=== PATIENT | male | born 1980 | race Caucasian/White ===

== ENCOUNTER 2023-06-13 13:09 | Outpatient (OUT) | payer OTHER, SELFPAY ==
--- NOTE | 2023-06-13 | XR_ITS ---
[facility] [id number] Patient Name: MADISON EVANGELISTA MRN: [id number] date: 1980 Sex: M Assigned Patient Location: [facility] Current Patient Location: Accession/Order Number: [id number] Exam Date: 06/13/2023 13:14 Report Date: 06/14/2023 07:47 At the request of: DRABY PETERSEN Procedure: XR foot RT min 3V PROCEDURE: XR foot RT min 3V HISTORY: RIGHT FOOT PAIN COMPARISON: XR foot right 06/13/2023 FINDINGS: BONES:Prior mechanical fusion of first metatarsophalangeal joint with fracture of the dorsal plate. Osteotomy and screw repair of heads of second and third metatarsals. Partial resection of heads of second and third proximal phalanges. SOFT TISSUES:No visible soft tissue swelling. EFFUSION:None visible. OTHER: Negative. XR/XR foot RT min 3V IMPRESSION: 1. Stable surgical changes and stable fracture of first metatarsal hardware. Electronically authenticated by: PRANAV MORTENSEN Date: 06/14/2023 07:47
== END 2023-06-13 13:10 | disposition home or self-care (01) ==
LOC: RAD 13:10
PROVIDERS: PCP Family Medicine; Visit Provider Podiatrist Foot & Ankle Surgery
DX: M96.0 Pseudarthrosis after fusion or arthrodesis (principal)
CPT/HCPCS: 73630

== ENCOUNTER 2024-03-31 19:11 | Emergency (ER) | payer OTHER, SELFPAY ==
[2024-03-31 19:14] VITALS: BP 187/104; PULSE 83; TEMP 36.9; O2SAT 95; BMI 32.3
--- OUTSIDE RECORDS SUMMARY | 2024-03-31 19:16 | XMS_ITS | CCD ---
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 Name Role Phone Dinora Meng Unavailable Dinora Rosen Unavailable BALBINA, DR PRANAV Guerra Consulting Unavailable DARBY PETERSEN Attending Unavailable DARBY PETERSEN Admitting Unavailable TRINITY, DARBY Chavez Consulting Unavailable TAQUERIA, DR FARIAS Primary Care Unavailable STEFFI BROOKS Attending Unavailable STEFFI BROOKS Admitting Unavailable WEST, DR DINORA Dinh Consulting Unavailable TAQUERIA, DR FARIAS Primary Care Unavailable STEFFI BROOKS Attending Unavailable STEFFI BROOKS Admitting Unavailable STEFFI BROOKS Consulting Unavailable DARBY PETERSEN Consulting Unavailable TAQUERIA, DR FARIAS Primary Care Unavailable DARBY PETERSEN Attending Unavailable DARBY PETERSEN Admitting Unavailable MAX GLEZ Consulting Unavailable DARBY PETERSEN Consulting Unavailable GIRNATANAEL, DR FARIAS Primary Care Unavailable DARBY PETERSEN Attending Unavailable DARBY PETERSEN Admitting Unavailable WEST, DR DINORA Dinh Consulting Unavailable GIRNATANAEL, DR FARIAS Primary Care Unavailable DARBY PETERSEN Attending Unavailable DARBY PETERSEN Admitting Unavailable BALBINA, DR PRANAV Guerra Consulting Unavailable HIGHLDARBY BHAGAT Consulting Unavailable VICTOR M Quiros, ROMÁN CLAYTON Consulting Unavailable NARA, ROMÁN Consulting Unavailable DIETER THOMAS Consulting Unavailable DUNIA, DR DINORA Dinh Consulting Unavailable TAQUERIA, DR FARIAS Primary Care Unavailable STEFFI BROOKS Attending Unavailable STEFFI BROOKS Admitting Unavailable KERLINE, STEFFI Consulting Unavailable BALBINA, DR PRANAV Guerra Consulting Unavailable TAQUERIA, DR FARIAS Primary Care Unavailable STEFFI BROOKS Attending Unavailable KERLINE, STEFFI Admitting Unavailable KERLINE, STEFFI Consulting Unavailable BALBINA, DR PRANAV Guerra Consulting Unavailable DARBY PETERSEN Attending Unavailable DARBY PETERSEN Admitting Unavailable DARBY PETERSEN Consulting Unavailable DO Dinora Meng Primary Care Provider MD Ab Blood Attending Provider [phone] DO Dinora Meng Attending Provider [phone] DO Dinora Meng Primary Care Provider [phone] DO Dinora Meng Attending Provider MD Ab Blood Attending Provider DO Dinora Meng Primary Care Provider [phone] MD Ab Blood Attending Provider [phone] DO Michael Crocker Attending Provider Taqueria, DO Farias Primary Care Provider [phone] MD Ab Blood Attending Provider Ab Blood Attending Unavailable Ab Blood Admitting Unavailable Taqueria, Dinora Primary Care Unavailable Ab Blood Attending Unavailable Ab Blood Admitting Unavailable Taqueria, Dinora Primary Care Unavailable Taqueria, Dinora Primary Care Unavailable Michael Crocker Admitting Unavailable Michael Crocker Attending Unavailable Taqueria, Dinora Primary Care Unavailable Michael Crocker Admitting Unavailable Michael Crocker Attending Unavailable Ab Blood Attending Unavailable Taqueria, Dinora Primary Care Unavailable Jeremi, Ab Admitting Unavailable Jeremi, Ab Attending Unavailable Taqueria, Dinora Primary Care Unavailable Ab Blood Admitting Unavailable Ab Blood Attending Unavailable Taqueria, Dinora Primary Care Unavailable Ab Blood Admitting Unavailable Dinora Meng Attending Unavailable Taqueria, Dinora Admitting Unavailable Taqueria, Dinora Primary Care Unavailable HalAb fritz Admitting Unavailable Jeremi, Ab Attending Unavailable Taqueria, Dinora Primary Care Unavailable Medications Current Medications Medication Drug Class(es) Dates Sig (Normalized) Sig (Original) 24 hr buPROPion hydrochloride 300 mg extended release oral tablet (20 sources) Aminoketone Start: 01-12-2024 End: 02-13-2024 take 1 tablet by mouth once daily in the morning Bupropion Hcl Active 0 .ROUTE .COMPLEX February 13, 2024 8:09am TAKE 1 TABLET BY MOUTH EVERY MORNING Start: 09-05-2023 End: 01-12-2024 take 1 tablet by mouth in the morning Bupropion Hcl Discontinued 0 .ROUTE .COMPLEX September 05, 2023 3:23pm January 12, 2024 9:02am TAKE 1 TABLET BY MOUTH IN THE MORNING Start: 08-17-2023 End: 09-05-2023 Bupropion Hcl (Wellbutrin Xl ) 150 mg tablet extended release 24 hr Discontinued 150 MG PO Daily 60 August 17, 2023 10:24am September 05, 2023 3:02pm 300 MG total (2 of the 150 MG tablets together) Start: 08-17-2023 End: 08-17-2023 take 1 tablet by mouth once daily in the morning Bupropion Hcl (Wellbutrin Xl) 150 mg tablet extended release 24 hr Discontinued 150 MG PO Daily August 17, 2023 1:00am August 17, 2023 10:24am FreeTextSi tablet in the morning Orally Once a day; Note: Source Status: Start; Refills: 0; Qty: 20 Tablet; Provider: Taqueria Reyes Start: 08-17-2023 End: 09-05-2023 take 1 tablet by mouth once daily in the morning Bupropion Hcl (Wellbutrin Xl) 300 mg tablet extended release 24 hr Discontinued 300 MG PO Every morning September 05, 2023 3:03pm September 05, 2023 3:23pm Start: 06-21-2023 take 1 tablet by cynthia th every twenty-four hours Wellbutrin XL 150 MG 1 tablet in the morning Orally Once a day for 20 days Jun, Active Start: 06-21-2023 take 1 tablet by cynthia th every twenty-four hours Wellbutrin XL 300 MG 1 tablet in the morning Orally Once a day for 30 days Jun, Active Folic Acid (12 sources) Folic Acid Not-T aking Folic Acid Activ e gabapentin 100 mg oral capsule (8 sources) Anti-epileptic Agent Start: 12-05-2022 Gabapentin 100 MG 1 capsule qd hs on day 1 then take 2 capsules qd hs on day 2 then increase to 3 capsules Orally qd hs thereafter for 30 days Dec, Active hydroxychloroquine sulfate 200 mg oral tablet (8 sources) Antimalarial, Antirheumatic Agent Start: 08-17-2023 take 1 mg by mouth twice daily Hydroxychloroquine Active MG PO Twice daily August 17, 2023 1:00am FreeTextSig: as directed Orally bid; Note: Source Status: Taking; Provider: Taqueria Farias ( ) Hydroxychloroqui ne Sulfate 200 MG as directed Orally bid Active lamoTRIgine 150 mg oral tablet (9 sources) Mood Stabilizer, Anti-epileptic Agent take 1 tablet by mouth every twenty-four hours lamoTRIgine 150 MG 1 tablet Orally Once a day Active take 1 tablet by cynthia th every twenty-four hours lamoTRIgine 100 MG 1 tablet Orally Once a day Active losartan potassium 50 mg oral tablet (20 sources) Angiotensin 2 Receptor Lucila Start: 08-17-2023 take 1 tablet by mouth once daily Losartan Active 1 TAB PO Daily August 17, 2023 1:00am FreeTextSig: TAKE 1 TABLET BY MOUTH DAILY; Note: Source Status: Start; Refills: 9; Qty: 30 Tablet; Provider: Taqueria Farias ( ) Start: 03-25-2021 take 1 tablet by cynthia th every twenty-four hours Losartan Potassium 25 MG 1 tablet Orally Once a day Mar, Active take 1 tablet by mouth once barrie y Losartan Potassium 50 MG TAKE 1 TABLET BY MOUTH DAILY for 30 Active pantoprazole (20 sources) Proton Pump Inhibitor Start: 12-05-2023 take 1 tablet by mouth once daily Pantoprazole Active 0 .ROUTE .COMPLEX December 05, 2023 8:09am TAKE 1 TABLET BY MOUTH DAILY Start: 08-17-2023 End: 12-05-2023 take 1 tablet by mouth once daily Pantoprazole Discontinued 1 TAB PO Daily August 17, 2023 1:00am December 05, 2023 8:09am FreeTextSig: TAKE ONE TABLET BY MOUTH DAILY; Note: Source Status: Taking; Refills: 1; Qty: 90 Tablet; Provider: Taqueria Farias ( ) take 1 tablet by cynthia th once daily Pantoprazole Sodium 40 MG TAKE ONE TABLET BY MOUTH DAILY for 90 Active take 1 tablet by cynthia th once daily Pantoprazole Sodium 40 1 tablet Orally Once a day for 90 days Active take 1 tablet by cynthia th once daily Pantoprazole Sodium 40 1 tablet Orally Once a day Active predniSONE 10 mg oral tablet (5 sources) Start: 12-05-2022 take 2 tablets by mouth once daily, then take 1 tablet by mouth once daily at mealtime predniSONE 10 MG 2 tablets once a day x5 days Orally then take 1 tablet qd with food or milk Dec, Active prednisone Not-T aking/PRN prednisone Activ e 24 hr venlafaxine 37.5 mg extended release oral capsule (15 sources) Serotonin and Norepinephrine Reuptake Inhibitor Start: 06-21-2023 take 1 capsule by mouth every twenty-four hours Venlafaxine HCl ER 37.5 MG 1 capsule with food Orally Once a day for 10 days Jun, Active Start: 01-04-2023 take 1 capsule by [facility] every twenty-four hours Effexor XR 150 MG 1 capsule with food Orally Once a day for 30 days Dec, Active Start: 01-04-2023 take 1 capsule by [facility] every twenty-four hours Effexor XR 37.5 MG 1 capsule with food Orally Once a day for 10 days Dec, Active Start: 01-04-2023 take 1 capsule by [facility] every twenty-four hours Effexor XR 75 MG 1 capsule with food Orally Once a day for 10 days Dec, Not-Taking/PRN Completed/Discontinued Medications Medication Drug Class(es) Dates Sig (Normalized) Sig (Original) amoxicillin 875 mg oral tablet (12 sources) Penicillin-class Antibacterial Start: 09-22-2023 End: 09-22-2023 take 875 mg by mouth twice daily Amoxicillin Discontinued 875 MG PO Twice daily September 22, 2023 10:18am September 22, 2023 10:29am Start: 03-25-2021 take 1 tablet by [facility] every twelve hours Amoxicillin 875 MG 1 tablet Orally Twice a day for 10 day(s) Mar, Not-Taking ferrous sulfate 325 mg oral tablet (12 sources) Start: 03-22-2023 take 1 tablet by mouth every other day as needed Ferrous Sulfate 325 (65 Fe) MG 1 tablet Orally two days a week Mar, Not-Taking/PRN Start: 12-04-2020 take 1 tablet by cynthia every other day Ferrous Sulfate 325 (65 Fe) MG 1 tablet Orally qod Dec, Not-Taking Start: 12-04-2020 [facility] Ferrous Sulfate 325 (65 Fe) MG 1 tablet Orally qod Dec, Not-Taking Methotrexate (9 sources) Folate Analog Metabolic Inhibitor Methotrexate Not-Taking Methotrexate Act karine Problems Active Problems Problem Classification Problem Date Documented Date Episodic/Chronic Acquired foot deformities (6 sources) Other hammer toe(s) (acquired), right foot; Translations: [Hallux valgus (acquired), right foot] Onset: 04-15-2022 Chronic Adjustment disorders (18 sources) Stress; Translations: [Reaction to severe stress, unspecified] Chronic Anxiety disorders (20 sources) Anxiety; Translations: [Anxiety disorder, unspecified] Onset: 03-25-2021 Resolved: 03-25-2021 Chronic Deficiency and other anemia (18 sources) Iron deficiency anemia; Translations: [Iron deficiency anemia, unspecified] Episodic Deficiency and other anemia (18 sources) Microcytic anemia; Translations: [Iron deficiency anemia, unspecified] Episodic Deficiency and other anemia (1 source) Iron deficiency anemia, unspecified Episodic Diabetes mellitus without complication (1 source) Hyperglycemia, unspecified Episodic Esophageal disorders (20 sources) Gastroesophageal reflux disease; Translations: [Gastro-esophageal reflux disease without esophagitis] Onset: 03-25-2021 Resolved: 09-02-2021 Chronic Essential hypertension (20 sources) Hypertensive disorder; Translations: [Essential (primary) hypertension] Onset: 05-09-2022 Chronic Genitourinary symptoms and ill-defined conditions (1 source) Nocturia Episodic Joint disorders and dislocations; trauma-related (1 source) Derangement of right knee; Translations: [Unspecified internal derangement of right knee] Chronic Miscellaneous mental health disorders (18 sources) Hypnic jerk; Translations: [Other sleep disorders not due to a substance or known physiological condition] Chronic Mood disorders (4 sources) Depressive disorder; Translations: [Major depressive disorder, single episode, unspecified] Chronic Osteoarthritis (4 sources) Primary osteoarthritis, right ankle and foot; Translations: [PRIMARY OSTEOARTHRITIS RT ANK FOOT] Onset: 03-21-2022 Chronic Other aftercare (1 source) Other country director (current) drug therapy Episodic Other bone disease and musculoskeletal deformities (1 source) Osteonecrosis, unspecified; Translations: [OSTEONECROSIS UNSPECIFIED] Onset: 03-23-2022 Chronic Other connective tissue disease (5 sources) Pain in right foot; Translations: [PAIN IN RIGHT FOOT] Onset: 05-09-2022 Episodic Other diseases of veins and lymphatics (18 sources) Venous hypertension of lower limb; Translations: [Chronic venous hypertension (idiopathic) without complications of right lower extremity] Chronic Other hereditary and degenerative nervous system conditions (18 sources) Restless legs; Translations: [Restless legs syndrome] Chronic Other nervous system disorders (20 sources) Lesion of ulnar nerve; Translations: [Lesion of ulnar nerve, unspecified upper limb] Chronic Other nervous system disorders (1 source) Lesion of ulnar nerve, unspecified upper limb Onset: 05-12-2021 Resolved: 05-12-2021 Chronic Other nervous system disorders (16 sources) Skin sensation disturbance; Translations: [Paresthesia of skin] Episodic Other non-traumatic joint disorders (18 sources) Joint pain; Translations: [Pain in unspecified joint] Episodic Other nutritional; endocrine; and metabolic disorders (20 sources) Body mass index 30+ - obesity; Translations: [Body mass index (BMI) 32.0-32.9, adult] Chronic Other nutritional; endocrine; and metabolic disorders (1 source) Abnormal weight gain Episodic Other screening for suspected conditions (not mental disorders or infectious disease) (18 sources) Elevated C-reactive protein; Translations: [Elevated C-reactive protein (CRP)] Episodic Maria [place] Carmen-; endo-; and myocarditis; cardiomyopathy (except that caused by tuberculosis or sexually transmitted disease) (18 sources) Valvular regurgitation; Translations: [Endocarditis, valve unspecified] Chronic Residual codes; unclassified (18 sources) Obstructive sleep apnea syndrome; Translations: [Obstructive sleep apnea (adult) (pediatric)] Chronic Residual codes; unclassified (1 source) Obstructive sleep apnea (adult) (pediatric) Chronic Residual codes; unclassified (14 sources) Amnesia; Translations: [Other amnesia] Episodic Rheumatoid arthritis and related disease (20 sources) Rheumatoid arthritis; Translations: [Rheumatoid arthritis, unspecified] Onset: 03-25-2021 Resolved: 03-25-2021 Chronic Unclassified (1 source) CONTACT W/AND (SUSP) EXPOS COVID-19; Translations: [CONTACT W/AND (SUSP) EXPOS COVID-19] Onset: 04-24-2022 Unclassified (1 source) Unspecified internal derangement of right knee; Translations: [Unspecified internal derangement of right knee] Onset: 08-24-2023 Unclassified (1 source) Pain in right knee; Translations: [Pain in right knee] Onset: 08-09-2023 Unclassified (1 source) Rheumatoid arthritis with rheumatoid factor of multiple sites without organ or systems involvement; Translations: [Rheumatoid arthritis with rheumatoid factor of multiple sites without organ or systems involvement] Onset: 06-01-2023 Unclassified (1 source) Encounter for general adult medical examination without abnormal findings; Translations: [Encounter for general adult medical examination without abnormal findings] Onset: 03-22-2023 Varicose veins of lower extremity (19 sources) Venous varices; Translations: [Varicose veins of right lower extremity with other complications] Onset: 03-25-2021 Resolved: 03-25-2021 Episodic Past or Other Problems Problem Classification Problem Date Documented Da te Episodic/Chronic Acquired foot deformities (1 source) Flat foot [pes planus] (acquired), left foot; Translations: [FLAT FOOT PES PLANUS ACQ LT FOOT] Onset: 03-20-2022 Episodic Acquired foot deformities (1 source) Flat foot [pes planus] (acquired), right foot; Translations: [FLAT FOOT PES PLANUS ACQ RT FOOT] Onset: 03-20-2022 Episodic Allergic reactions (1 source) Allergic contact dermatitis due to plants, except food; Translations: [Poison faviola dermatitis L23.7] Onset: 03-25-2021 Resolved: 03-25-2021 Episodic Joint disorders and dislocations; trauma-related (1 source) Unspecified subluxation of right toe(s), sequela; Translations: [UNS SUBLUXATION RT TOES SEQUELA] Onset: 05-09-2022 Episodic Other circulatory disease (3 sources) Elevated blood-pressure reading, without diagnosis of hypertension; Translations: [Elevated blood pressure R03.0] Onset: 03-25-2021 Resolved: 05-12-2021 Episodic Other connective tissue disease (1 source) Pain in left foot; Translations: [PAIN IN LEFT FOOT] Onset: 03-20-2022 Episodic Other nervous system disorders (2 sources) Paresthesia of skin Onset: 05-12-2021 Resolved: 05-19-2021 Episodic Other non-traumatic joint disorders (5 sources) Other specified joint disorders, right ankle and foot; Translations: [OTHER SPEC JOINT D/O RT ANKLE FOOT] Onset: 05-09-2022 Episodic Screening and history of mental health and substance abuse codes (1 source) Personal history of nicotine dependence; Translations: [PERSONAL HISTORY OF NICOTINE DEPEND] Onset: 05-09-2022 Episodic Spondylosis; intervertebral disc disorders; other back problems (1 source) Cervicalgia Onset: 05-12-2021 Resolved: 05-12-2021 Episodic Results Test Name Value Interpretation Reference Range Facility Alanine aminotransferase [En zymatic activity/volume] in Serum or PlasmaOrdered By: Ab Blood on 03-06-2024 ALT [Catalytic activity/Vol] 25 U/L Normal 7-52 [facility] Comment on above: Performed By: #### H EPATIC, ESR, CREAT, CBC ####[place] [id number] [address] Albumin [Mass/volume] in Ser um or Plasma by Bromocresol green (BCG) dye binding methoOrdered By: Ab Blood on 03-06-2024 Albumin BCG dye [Mass/Vol] 4.4 g/dL 3.5-5.7 [facility] Alkaline phosphatase [Enzyma tic activity/volume] in Serum or PlasmaOrdered By: Ab Blood on 03-06-2024 ALP [Catalytic activity/Vol] 67 U/L Normal 34-104 [facility] Comment on above: Performed By: #### H EPATIC, ESR, CREAT, CBC ####[place] [id number] [facility] Aspartate aminotransferase [ Enzymatic activity/volume] in Serum or PlasmaOrdered By: Ab Blood on 03-06-2024 AST [Catalytic activity/Vol] 19 U/L Normal 13-39 [facility] Comment on above: Performed By: #### H EPATIC, ESR, CREAT, CBC ####[place] [id number] [place] [id number] [facility] Automated basophil %Ordered By: Ab Blood on 03-06-2024 Basophils/100 WBC (Bld) 1.0 % Normal . [facility] Comment on above: Performed By: #### H EPATIC, ESR, CREAT, CBC ####[place] [id number] [facility] Automated basophil countOrde red By: Ab Blood on 03-06-2024 Basophils (Bld) [#/Vol] 0.1 10*3/uL Normal 0.0-0.2 [facility] Comment on above: Performed By: #### H EPATIC, ESR, CREAT, CBC ####[address] Automated blood monocyte cou ntOrdered By: Ab Blood on 03-06-2024 Monocytes (Bld) [#/Vol] 0.6 10*3/uL Normal 0.0-0.8 [facility] Comment on above: Performed By: #### H EPATIC, ESR, CREAT, CBC ####[address] Automated eosinophil %Ordere d By: Ab Blood on 03-06-2024 Eosinophils/100 WBC (Bld) 1.1 % Normal . [facility] Comment on above: Performed By: #### H EPATIC, ESR, CREAT, CBC ####[address] Automated eosinophil countOr dered By: Ab Blood on 03-06-2024 Eosinophils (Bld) [#/Vol] 0.1 10*3/uL Normal 0.0-0.45 [facility] Comment on above: Performed By: #### H EPATIC, ESR, CREAT, CBC ####[address] Automated monocyte %Ordered By: Ab Blood on 03-06-2024 Monocytes/100 WBC (Bld) 8.4 % Normal . [facility] Comment on above: Performed By: #### H EPATIC, ESR, CREAT, CBC ####[address] Automated neutrophil %Ordere d By: Ab Blood on 03-06-2024 Neutrophils/100 WBC (Bld) 63.2 % Normal . [facility] Comment on above: Performed By: #### H EPATIC, ESR, CREAT, CBC ####[place] [id number] [place] [id number] [facility] Bilirubin.direct [Mass/volum e] in Serum or PlasmaOrdered By: bA Blood on 03-06-2024 Bilirubin.direct [Mass/Vol] 0.10 mg/dL 0.03-0.18 [facility] Bilirubin.total [Mass/volume ] in Serum or PlasmaOrdered By: Ab Blood on 03-06-2024 Bilirubin [Mass/Vol] 0.8 mg/dL Normal 0.3-1.0 [facility] Comment on above: Performed By: #### H EPATIC, ESR, CREAT, CBC ####[address] Complete Blood Count Auto Di ffon 03-06-2024 Mean Corpuscular HGB Conc 33.7 g/dL Normal 32.5-35.6 [facility] Comment on above: Performed By: #### H EPATIC, ESR, CREAT, CBC ####[address] NRBC% 0.1 /100{WBC} Normal 0-0.5 [facility] Comment on above: Performed By: #### H EPATIC, ESR, CREAT, CBC ####[place] [id number] [facility] Creatinineon 03-06-2024 GFR/1.73 sq M.predicted MDRD (S/P/Bld) [Vol rate/Area] mL/min/{1.73_m2} Normal [facility] Comment on above: Result Comment: PERF ORMED BY: [facility] [address] [place] [id number] PATHOLOGIST [employer] HELPER CADEN CUMMINGS M.D. Performed By: #### H EPATIC, ESR, CREAT, CBC ####[address] Creatinine [Mass/volume] in Serum or PlasmaOrdered By: Ab Blood on 03-06-2024 Creatinine [Mass/Vol] 1.01 mg/dL Normal 0.70-1.30 [facility] Comment on above: Performed By: #### H EPATIC, ESR, CREAT, CBC ####[place] [id number] [facility] Erythrocyte Sedimentation Ra florentino 03-06-2024 ESR (Bld) [Velocity] 34 mm/h High 0-14 [facility] Comment on above: Result Comment: PERF ORMED BY: [facility] [address] [place] [id number] PATHOLOGIST [employer]TER HELPER CADEN CUMMINGS M.D. Performed By: #### H EPATIC, ESR, CREAT, CBC ####[address] Erythrocyte distribution wid th [Ratio] by Automated countOrdered By: Ab Blood on 03-06-2024 Erythrocyte distribution width (RBC) [Ratio] 16.2 % High 12.0-14.8 [facility] Comment on above: Performed By: #### H EPATIC, ESR, CREAT, CBC ####[place] [id number] [facility] Erythrocyte sedimentation ra te by Photometric methodOrdered By: Ab Blood on 03-06-2024 ESR Photometric method (Bld) [Velocity] 34 mm/hr High 0-14 [facility] Erythrocytes [#/volume] in B lood by Automated countOrdered By: Ab Blood on 03-06-2024 RBC (Bld) [#/Vol] 4.59 10*6/uL Normal 3.90-5.60 [facility] Comment on above: Performed By: #### H EPATIC, ESR, CREAT, CBC ####[place] [id number] [facility] Hematocrit [Volume Fraction] of Blood by Automated countOrdered By: Ab Blood on 03-06-2024 Hematocrit (Bld) [Volume fraction] 38.7 % Low 38.8-50.0 [facility] Comment on above: Performed By: #### H EPATIC, ESR, CREAT, CBC ####[address] Hemoglobin [Mass/volume] in BloodOrdered By: Ab Blood on 03-06-2024 Hemoglobin (Bld) [Mass/Vol] 13.0 g/dL Normal 13.0-17.0 [facility] Comment on above: Performed By: #### H EPATIC, ESR, CREAT, CBC ####[place] [id number] [facility] Hepatic Panelon 03-06-2024 Albumin [Mass/Vol] 4.4 g/dL Normal 3.5-5.7 [facility] Comment on above: Performed By: #### H EPATIC, ESR, CREAT, CBC ####[address] Bilirubin,Indirect 0.7 mg/dL Normal [facility] Comment on above: Performed By: #### H EPATIC, ESR, CREAT, CBC ####[address] Bilirubin.indirect [Mass/Vol] 0.10 mg/dL Normal 0.03-0.18 [facility] Comment on above: Performed By: #### H EPATIC, ESR, CREAT, CBC ####[address] Leukocytes [#/volume] correc michelle for nucleated erythrocytes in Blood by Automated counOrdered By: Ab Blood on 03-06-2024 WBC corrected for nucl RBC Auto (Bld) [#/Vol] 7.5 10*3/uL 4.1-10.5 [facility] Leukocytes [#/volume] in Blo od by Automated countOrdered By: Ab Blood on 03-06-2024 WBC (Bld) [#/Vol] 7.5 10*3/uL Normal 4.1-10.5 [facility] Comment on above: Performed By: #### H EPATIC, ESR, CREAT, CBC ####[address] Lymphocytes [#/volume] in Bl ood by Automated countOrdered By: Ab Blood on 03-06-2024 Lymphocytes (Bld) [#/Vol] 2.0 10*3/uL Normal 1.00-4.8 [facility] Comment on above: Performed By: #### H EPATIC, ESR, CREAT, CBC ####[place] [id number] [place] [id number] [facility] Lymphocytes/100 leukocytes i n Blood by Automated countOrdered By: Ab Blood on 03-06-2024 Lymphocytes/100 WBC (Bld) 26.3 % Normal . [facility] Comment on above: Performed By: #### H EPATIC, ESR, CREAT, CBC ####[address] MCH [Entitic mass] by Automa michelle countOrdered By: Ab Blood on 03-06-2024 MCH (RBC) [Entitic mass] 28.4 pg Normal 27.5-35.2 [facility] Comment on above: Performed By: #### H EPATIC, ESR, CREAT, CBC ####[address] MCHC Auto (RBC) [Mass/Vol]Or dered By: Ab Blood on 03-06-2024 MCHC (RBC) [Mass/Vol] 33.7 g/dL 32.5-35.6 [facility] MCV [Entitic volume] by Auto mated countOrdered By: Ab Blood on 03-06-2024 MCV (RBC) [Entitic vol] 84.3 fL Normal 83.5-101 F [facility] Comment on above: Performed By: #### H EPATIC, ESR, CREAT, CBC ####[address] Neutrophils [#/volume] in Bl ood by Automated countOrdered By: Ab Blood on 03-06-2024 Neutrophils (Bld) [#/Vol] 4.7 10*3/uL Normal 1.8-7.7 [facility] Comment on above: Performed By: #### H EPATIC, ESR, CREAT, CBC ####[address] [place] [address] [place] No Panel InformationOrdered By: Ab Blood on 03-06-2024 Estimated GFR (CKD-EPI) > 60.0 mL/Min [facility] Creatinine Clearance (Chem N/A [facility] Nucleated erythrocytes [Pres ence] in Blood by Automated countOrdered By: Ab Blood on 03-06-2024 Nucleated RBC Auto Ql (Bld) 0.1 /100{WBC} 0-0.5 [facility] Platelet mean volume [Entiti c volume] in Blood by Automated countOrdered By: Ab Blood on 03-06-2024 Platelet mean volume (Bld) [Entitic vol] 7.3 fL Normal 6.6-10.1 [facility] Comment on above: Performed By: #### H EPATIC, ESR, CREAT, CBC ####[address] Platelets [#/volume] in Bloo d by Automated countOrdered By: Ab Blood on 03-06-2024 Platelets (Bld) [#/Vol] 361 10*3/uL Normal 150-450 [facility] Comment on above: Performed By: #### H EPATIC, ESR, CREAT, CBC ####[address] Protein [Mass/volume] in Ser um or PlasmaOrdered By: Ab Blood on 03-06-2024 Protein [Mass/Vol] 7.2 g/dL Normal 6.4-8.9 [facility] Comment on above: Performed By: #### H EPATIC, ESR, CREAT, CBC ####[address] Serum globulin measurement b y calculation (mass/volume)Ordered By: Ab Blood on 03-06-2024 Globulin (S) [Mass/Vol] 2.8 g/dL Normal F [facility] Comment on above: Performed By: #### H EPATIC, ESR, CREAT, CBC ####[address] Serum or plasma albumin/glob ulin mass ratioOrdered By: Ab Blood on 03-06-2024 Albumin/Globulin [Mass ratio] 1.6 {ratio} Normal [facility] Comment on above: Performed By: #### H EPATIC, ESR, CREAT, CBC ####[facility] [id number] Serum or plasma non-glucuron idated bilirubin measurement (mass/volume)Ordered By: Ab Blood on 03-06-2024 Bilirubin.indirect [Mass/Vol] 0.7 mg/dL [facility] Complete Blood Count Auto Di ffon 11-01-2023 Basophils (Bld) [#/Vol] 0.1 10*3/uL Normal 0.0-0.2 [facility] Comment on above: Performed By: #### E SR, HEPATIC, CBC, CREAT #### [facility] [address] Basophils/100 WBC (Bld) 1.0 % Normal . [facility] Comment on above: Performed By: #### E SR, HEPATIC, CBC, CREAT #### [facility] [address] [place] [address] [place] Eosinophils (Bld) [#/Vol] 0.0 10*3/uL Normal 0.0-0.45 [facility] Comment on above: Performed By: #### E SR, HEPATIC, CBC, CREAT #### [facility] [address] Eosinophils/100 WBC (Bld) 0.6 % Normal . [facility] Comment on above: Performed By: #### E SR, HEPATIC, CBC, CREAT #### [facility] [address] Erythrocyte distribution width (RBC) [Ratio] 16.6 % High 12.0-14.8 [facility] Comment on above: Performed By: #### E SR, HEPATIC, CBC, CREAT #### [facility] [address] Hematocrit (Bld) [Volume fraction] 41.1 % Normal 38.8-50.0 [facility] Comment on above: Performed By: #### E SR, HEPATIC, CBC, CREAT #### [address] Hemoglobin (Bld) [Mass/Vol] 13.8 g/dL Normal 13.0-17.0 [facility] Comment on above: Performed By: #### E SR, HEPATIC, CBC, CREAT #### [address] Lymphocytes (Bld) [#/Vol] 1.8 10*3/uL Normal 1.00-4.8 [facility] Comment on above: Performed By: #### E SR, HEPATIC, CBC, CREAT #### [address] Lymphocytes/100 WBC (Bld) 22.7 % Normal . [facility] Comment on above: Performed By: #### E SR, HEPATIC, CBC, CREAT #### [address] MCH (RBC) [Entitic mass] 28.1 pg Normal 27.5-35.2 [facility] Comment on above: Performed By: #### E SR, HEPATIC, CBC, CREAT #### [address] MCV (RBC) [Entitic vol] 83.9 fL Normal 83.5-101 [facility] Comment on above: Performed By: #### E SR, HEPATIC, CBC, CREAT #### [address] Mean Corpuscular HGB Conc 33.5 g/dL Normal 32.5-35.6 [facility] Comment on above: Performed By: #### E SR, HEPATIC, CBC, CREAT #### [address] Monocytes (Bld) [#/Vol] 0.3 10*3/uL Normal 0.0-0.8 [facility] Comment on above: Performed By: #### E SR, HEPATIC, CBC, CREAT #### [facility] [address] [place] [address] [place] Monocytes/100 WBC (Bld) 3.5 % Normal . [facility] Comment on above: Performed By: #### E SR, HEPATIC, CBC, CREAT #### [facility] [address] [place] [address] [place] Neutrophils (Bld) [#/Vol] 5.7 10*3/uL Normal 1.8-7.7 [facility] Comment on above: Performed By: #### E SR, HEPATIC, CBC, CREAT #### [place] [address] [place] Neutrophils/100 WBC (Bld) 72.2 % Normal . [facility] Comment on above: Performed By: #### E SR, HEPATIC, CBC, CREAT #### [address] NRBC% 0.1 /100{WBC} Normal 0-0.5 [facility] Comment on above: Performed By: #### E SR, HEPATIC, CBC, CREAT #### [place] [address] [place] Platelet mean volume (Bld) [Entitic vol] 7.3 fL Normal 6.6-10.1 [facility] Comment on above: Performed By: #### E SR, HEPATIC, CBC, CREAT #### [place] [address] [place] Platelets (Bld) [#/Vol] 336 10*3/uL Normal 150-450 [facility] Comment on above: Performed By: #### E SR, HEPATIC, CBC, CREAT #### [place] [address] [place] RBC (Bld) [#/Vol] 4.90 10*6/uL Normal 3.90-5.60 [facility] Comment on above: Performed By: #### E SR, HEPATIC, CBC, CREAT #### [place] [address] [place] WBC (Bld) [#/Vol] 7.9 10*3/uL Normal 4.1-10.5 [facility] Comment on above: Performed By: #### E SR, HEPATIC, CBC, CREAT #### [address] Creatinineon 11-01-2023 Creatinine [Mass/Vol] 1.07 mg/dL Normal 0.70-1.30 [facility] Comment on above: Performed By: #### E SR, HEPATIC, CBC, CREAT #### [address] GFR/1.73 sq M.predicted MDRD (S/P/Bld) [Vol rate/Area] mL/min/{1.73_m2} Normal [facility] Comment on above: Result Comment: PERF ORMED BY: [place] [address] PATHOLOGIST [employer] CADEN CUMMINGS M.D. Performed By: #### E SR, HEPATIC, CBC, CREAT #### [address] Erythrocyte Sedimentation Ra florentino 11-01-2023 ESR (Bld) [Velocity] 21 mm/h High 0-14 [facility] Comment on above: Result Comment: PERF ORMED BY: [place] [address] PATHOLOGIST [employer] CADEN CUMMINGS M.D. Performed By: #### E SR, HEPATIC, CBC, CREAT ####[address] Hepatic Panelon 11-01-2023 Albumin [Mass/Vol] 4.6 g/dL Normal 3.5-5.7 [facility] Comment on above: Performed By: #### E SR, HEPATIC, CBC, CREAT #### [address] Albumin/Globulin [Mass ratio] 1.8 {ratio} Normal [facility] Comment on above: Performed By: #### E SR, HEPATIC, CBC, CREAT #### [address] [address] [place] ALP [Catalytic activity/Vol] 59 U/L Normal 34-104 [facility] Comment on above: Performed By: #### E SR, HEPATIC, CBC, CREAT #### [address] ALT [Catalytic activity/Vol] 20 U/L Normal 7-52 [facility] Comment on above: Performed By: #### E SR, HEPATIC, CBC, CREAT #### [facility] [address] [place] [address] AST [Catalytic activity/Vol] 18 U/L Normal 13-39 [facility] Comment on above: Performed By: #### E SR, HEPATIC, CBC, CREAT #### [address] Bilirubin [Mass/Vol] 0.9 mg/dL Normal 0.3-1.0 [facility] Comment on above: Performed By: #### E SR, HEPATIC, CBC, CREAT #### [address] Bilirubin,Indirect 0.7 mg/dL Normal [facility] Comment on above: Performed By: #### E SR, HEPATIC, CBC, CREAT #### [address] Bilirubin.indirect [Mass/Vol] 0.20 mg/dL High 0.03-0.18 [facility] Comment on above: Performed By: #### E SR, HEPATIC, CBC, CREAT #### [address] Globulin (S) [Mass/Vol] 2.5 g/dL Normal [facility] Comment on above: Performed By: #### E SR, HEPATIC, CBC, CREAT #### [facility] [address] [place] [address] Protein [Mass/Vol] 7.1 g/dL Normal 6.4-8.9 [facility] Comment on above: Performed By: #### E SR, HEPATIC, CBC, CREAT #### [facility] [address] QuantiFERON TB Goldon 2023 QFTB Criteria Normal . [facility] Comment on above: Result Comment: Dre tiFERON-TB Gold Plus is a qualitative indirect test for M tuberculosis infection (including disease) and is intended for use in conjunction with risk assessment, radiography, and other medical and diagnostic evaluations. The QuantiFERON-TB Gold Plus result is determined by subtracting the Nil value from either TB antigen (Ag) value. The Mitogen tube serves as a control for the test. Performed By: #### Q UANT TB ####[facility] , Quant TB Ag Value 0.06 Normal . [facility] Comment on above: Performed By: #### Q UANT TB ####[facility] , Quant TB Gold Plus Negative Normal Negative [facility] Comment on above: Result Comment: No r esponse to M tuberculosis antigens detected. Infection with M tuberculosis is unlikely, but high risk individuals should be considered for additional testing (ATS/IDSA/CDC Clinical Practice Guidelines, 2017). The reference range is an Antigen minus Nil result of <0.35 IU/mL. The specimen received for QuantiFERON testing was incubated by the ordering institution. Specific procedures outlined in our Directory of Services and in the package insert for the QuantiFERON Gold (In Tube) test must be followed to enable for proper stimulation of cells for the production of interferon gamma. Chemiluminescence immunoassay methodology Performed at: [facility] [address] [id number] [place] [employer] Desk Clerk: Ham Madrigal PhD, Phone: [phone] PERFORMED BY: [place] [address] PATHOLOGIST [employer] CADEN CUMMINGS M.D. Performed By: #### Q UANT TB ####[facility] , Quant TB2 Ag Value 0.08 Normal . [facility] Comment on above: Performed By: #### Q UANT TB ####[facility] , Quantiferon Nil Value 0.05 Normal . [facility] Comment on above: Performed By: #### Q UANT TB ####[facility] , Quantiferon TB Mitogen >10.00 Normal . [facility] Comment on above: Performed By: #### Q UANT TB ####[facility] , Alanine aminotransferase [En zymatic activity/volume] in Serum or PlasmaOrdered By: Ab Blood on 08-24-2023 ALT [Catalytic activity/Vol] 19 U/L Normal 7-52 [facility] Comment on above: Performed By: #### E SR, CBC, CREAT, HEPATIC #### [facility] [address] [place] [address] Performed By: #### H EPATIC, CBC, CREAT, ESR ####[address] Albumin [Mass/volume] in Ser um or Plasma by Bromocresol green (BCG) dye binding methoOrdered By: Ab Blood on 08-24-2023 Albumin BCG dye [Mass/Vol] 4.5 g/dL 3.5-5.7 [facility] Alkaline phosphatase [Enzyma tic activity/volume] in Serum or PlasmaOrdered By: Ab Blood on 08-24-2023 ALP [Catalytic activity/Vol] 75 U/L Normal 34-104 [facility] Comment on above: Performed By: #### E SR, CBC, CREAT, HEPATIC #### [facility] [address] [place] [address] Performed By: #### H EPATIC, CBC, CREAT, ESR ####[address] Aspartate aminotransferase [ Enzymatic activity/volume] in Serum or PlasmaOrdered By: Ab Blood on 08-24-2023 AST [Catalytic activity/Vol] 16 U/L Normal 13-39 [facility] Comment on above: Performed By: #### E SR, CBC, CREAT, HEPATIC #### [facility] [address] [place] [address] Performed By: #### H EPATIC, CBC, CREAT, ESR ####[address] Automated basophil %Ordered By: Ab Blood on 08-24-2023 Basophils/100 WBC (Bld) 1.3 % Normal . [facility] Comment on above: Performed By: #### E SR, CBC, CREAT, HEPATIC #### [address] Performed By: #### H EPATIC, CBC, CREAT, ESR ####[address] Automated basophil countOrde red By: Ab Blood on 08-24-2023 Basophils (Bld) [#/Vol] 0.1 10*3/uL Normal 0.0-0.2 [facility] Comment on above: Performed By: #### E SR, CBC, CREAT, HEPATIC #### [address] Performed By: #### H EPATIC, CBC, CREAT, ESR ####[address] Automated blood monocyte cou ntOrdered By: Ab Blood on 08-24-2023 Monocytes (Bld) [#/Vol] 0.5 10*3/uL Normal 0.0-0.8 [facility] Comment on above: Performed By: #### E SR, CBC, CREAT, HEPATIC #### [address] Performed By: #### H EPATIC, CBC, CREAT, ESR ####[address] Automated eosinophil %Ordere d By: Ab Blood on 08-24-2023 Eosinophils/100 WBC (Bld) 2.1 % Normal . [facility] Comment on above: Performed By: #### E SR, CBC, CREAT, HEPATIC #### [address] Performed By: #### H EPATIC, CBC, CREAT, ESR ####[address] [place] [address] [place] Automated eosinophil countOr dered By: Ab Blood on 08-24-2023 Eosinophils (Bld) [#/Vol] 0.2 10*3/uL Normal 0.0-0.45 [facility] Comment on above: Performed By: #### E SR, CBC, CREAT, HEPATIC #### [facility] [address] Performed By: #### H EPATIC, CBC, CREAT, ESR ####[address] Automated monocyte %Ordered By: Ab Blood on 08-24-2023 Monocytes/100 WBC (Bld) 5.6 % Normal . [facility] Comment on above: Performed By: #### E SR, CBC, CREAT, HEPATIC #### [facility] [address] [place] [address] Performed By: #### H EPATIC, CBC, CREAT, ESR ####[address] Automated neutrophil %Ordere d By: Ab Blood on 08-24-2023 Neutrophils/100 WBC (Bld) 68.9 % Normal . [facility] Comment on above: Performed By: #### E SR, CBC, CREAT, HEPATIC #### [facility] [address] [place] [address] Performed By: #### H EPATIC, CBC, CREAT, ESR ####[facility] [id number] [place] [address] Bilirubin.direct [Mass/volum e] in Serum or PlasmaOrdered By: Ab Blood on 08-24-2023 Bilirubin.direct [Mass/Vol] 0.20 mg/dL 0.03-0.18 [facility] Bilirubin.total [Mass/volume ] in Serum or PlasmaOrdered By: Ab Blood on 08-24-2023 Bilirubin [Mass/Vol] 0.9 mg/dL Normal 0.3-1.0 [facility] Comment on above: Performed By: #### E SR, CBC, CREAT, HEPATIC #### [address] Performed By: #### H EPATIC, CBC, CREAT, ESR ####[address] Complete Blood Count Auto Di ffon 08-24-2023 Mean Corpuscular HGB Conc 33.0 g/dL Normal 32.5-35.6 [facility] Comment on above: Performed By: #### E SR, CBC, CREAT, HEPATIC #### [address] Performed By: #### H EPATIC, CBC, CREAT, ESR ####[address] NRBC% 0.1 /100{WBC} Normal 0-0.5 [facility] Comment on above: Performed By: #### E SR, CBC, CREAT, HEPATIC #### [address] Performed By: #### H EPATIC, CBC, CREAT, ESR ####[address] Creatinineon 08-24-2023 GFR/1.73 sq M.predicted MDRD (S/P/Bld) [Vol rate/Area] mL/min/{1.73_m2} Normal [facility] Comment on above: Result Comment: PERF ORMED BY: [place] [address] PATHOLOGIST [employer] CADEN CUMMINGS M.D. Performed By: #### E SR, CBC, CREAT, HEPATIC #### [address] Performed By: #### H EPATIC, CBC, CREAT, ESR ####[address] Creatinine [Mass/volume] in Serum or PlasmaOrdered By: Ab Blood on 08-24-2023 Creatinine [Mass/Vol] 0.93 mg/dL Normal 0.70-1.30 [facility] Comment on above: Performed By: #### E SR, CBC, CREAT, HEPATIC #### [facility] [address] [place] [address] Performed By: #### H EPATIC, CBC, CREAT, ESR ####[address] Erythrocyte Sedimentation Ra florentino 08-24-2023 ESR (Bld) [Velocity] 35 mm/h High 0-14 [facility] Comment on above: Result Comment: PERF ORMED BY: [place] [address] PATHOLOGIST [employer] CADEN CUMMINGS M.D. Performed By: #### E SR, CBC, CREAT, HEPATIC #### [facility] [address] [place] [address] Performed By: #### H EPATIC, CBC, CREAT, ESR ####[address] Erythrocyte distribution wid th [Ratio] by Automated countOrdered By: Ab Blood on 08-24-2023 Erythrocyte distribution width (RBC) [Ratio] 15.7 % High 12.0-14.8 [facility] Comment on above: Performed By: #### E SR, CBC, CREAT, HEPATIC #### [facility] [address] [place] [address] Performed By: #### H EPATIC, CBC, CREAT, ESR ####[address] Erythrocyte sedimentation ra te by Photometric methodOrdered By: Ab Blood on 08-24-2023 ESR Photometric method (Bld) [Velocity] 35 mm/hr 0-14 [facility] Erythrocytes [#/volume] in B lood by Automated countOrdered By: Ab Blood on 08-24-2023 RBC (Bld) [#/Vol] 4.76 10*6/uL Normal 3.90-5.60 [facility] Comment on above: Performed By: #### E SR, CBC, CREAT, HEPATIC #### [facility] [address] [place] [address] Performed By: #### H EPATIC, CBC, CREAT, ESR ####[address] Hematocrit [Volume Fraction] of Blood by Automated countOrdered By: Ab Blood on 08-24-2023 Hematocrit (Bld) [Volume fraction] 40.5 % Normal 38.8-50.0 [facility] Comment on above: Performed By: #### E SR, CBC, CREAT, HEPATIC #### [address] Performed By: #### H EPATIC, CBC, CREAT, ESR ####[address] Hemoglobin [Mass/volume] in BloodOrdered By: Ab Blood on 08-24-2023 Hemoglobin (Bld) [Mass/Vol] 13.4 g/dL Normal 13.0-17.0 [facility] Comment on above: Performed By: #### E SR, CBC, CREAT, HEPATIC #### [address] Performed By: #### H EPATIC, CBC, CREAT, ESR ####[address] Hepatic Panelon 08-24-2023 Albumin [Mass/Vol] 4.5 g/dL Normal 3.5-5.7 [facility] Comment on above: Performed By: #### E SR, CBC, CREAT, HEPATIC #### [facility] [address] [place] [address] Performed By: #### H EPATIC, CBC, CREAT, ESR ####[address] Bilirubin,Indirect 0.7 mg/dL Normal [facility] Comment on above: Performed By: #### E SR, CBC, CREAT, HEPATIC #### [address] Performed By: #### H EPATIC, CBC, CREAT, ESR ####[address] Bilirubin.indirect [Mass/Vol] 0.20 mg/dL High 0.03-0.18 [facility] Comment on above: Performed By: #### E SR, CBC, CREAT, HEPATIC #### [address] Performed By: #### H EPATIC, CBC, CREAT, ESR ####[address] Leukocytes [#/volume] correc michelle for nucleated erythrocytes in Blood by Automated counOrdered By: Ab Blood on 08-24-2023 WBC corrected for nucl RBC Auto (Bld) [#/Vol] 8.4 10*3/uL 4.1-10.5 [facility] Leukocytes [#/volume] in Blo od by Automated countOrdered By: Ab Blood on 08-24-2023 WBC (Bld) [#/Vol] 8.4 10*3/uL Normal 4.1-10.5 [facility] Comment on above: Performed By: #### E SR, CBC, CREAT, HEPATIC #### [address] Performed By: #### H EPATIC, CBC, CREAT, ESR ####[address] Lymphocytes [#/volume] in Bl ood by Automated countOrdered By: Ab Blood on 08-24-2023 Lymphocytes (Bld) [#/Vol] 1.9 10*3/uL Normal 1.00-4.8 [facility] Comment on above: Performed By: #### E SR, CBC, CREAT, HEPATIC #### [address] Performed By: #### H EPATIC, CBC, CREAT, ESR ####[address] Lymphocytes/100 leukocytes i n Blood by Automated countOrdered By: Ab Blood on 08-24-2023 Lymphocytes/100 WBC (Bld) 22.1 % Normal . [facility] Comment on above: Performed By: #### E SR, CBC, CREAT, HEPATIC #### [facility] [address] [place] [address] Performed By: #### H EPATIC, CBC, CREAT, ESR ####[address] MCH [Entitic mass] by Automa michelle countOrdered By: Ab Blood on 08-24-2023 MCH (RBC) [Entitic mass] 28.1 pg Normal 27.5-35.2 [facility] Comment on above: Performed By: #### E SR, CBC, CREAT, HEPATIC #### [address] Performed By: #### H EPATIC, CBC, CREAT, ESR ####[address] MCHC Auto (RBC) [Mass/Vol]Or dered By: Ab Blood on 08-24-2023 MCHC (RBC) [Mass/Vol] 33.0 g/dL 32.5-35.6 [facility] MCV [Entitic volume] by Auto mated countOrdered By: Ab Blood on 08-24-2023 MCV (RBC) [Entitic vol] 85.2 fL Normal 83.5-101 F [facility] Comment on above: Performed By: #### E SR, CBC, CREAT, HEPATIC #### [address] Performed By: #### H EPATIC, CBC, CREAT, ESR ####[address] MR knee RT wo conon 08-24-19 MR knee RT wo con [facility] [employer] [address] [place] [address] MRI Report Signed Patient: Ab Rivera MR#: [id number] : 1980 Acct:[id number] Age/Sex: 42 / M ADM Date: 08/24/23 Loc: [facility] Room: Type: [facility] CLI Attending Dr: Michael Crocker DO Copies to: Michael Crocker DO Ordering Provider: Michael Crocker DO Date of Service: 08/24/23 MR/MR knee RT wo con: Internal derangement of right knee MRI of the RIGHT Knee without contrast TECHNIQUE: Multiplanar T1 and T2-weighted imaging of the knee obtained without contrast HISTORY: Popping sensation of the posterior portion of the RIGHT knee. Pain superior to the patella. COMPARISON:Plain film imaging to 724 BONE MARROW: No infiltrative changes. BONE MARROW EDEMA: There is focal region of bone marrow edema in region of the tibial spine posteriorly. Additional region of bone marrow edema subchondral portion of the middle facet of the patella. FRACTURE: None BONE TUMOR: None BONY ALIGNMENT: Adequate DEGENERATION: Minor marginal spurring. Mild joint space narrowing medially. JOINT EFFUSION: Large joint effusion. Mild tenosynovial thickening. MUSCLES: Unremarkable SOFT TISSUES: Unremarkable POPLITEAL CYST: Large multiloculated popliteal cyst. Cyst measures up to 7.3 cm. The varices identified in the popliteal region. Additional varices identified in the lateral posterior portion of the knee. ANTERIOR CRUCIATE LIGAMENT: Intact POSTERIOR CRUCIATE LIGAMENT: Intact LATERAL COMPARTMENT: LATERAL MENISCUS: Intact. LATERAL ARTICULAR CARTILAGE: Intact. No osteochondral defect. No subcuticular bone marrow edema. PROXIMAL TIBIOFIBULAR JOINT: Intact POSTERIOR LATERAL COMPARTMENT: Intact lateral collateral ligament complex. Intact biceps femoris tendon. Intact popliteus tendon. COMMON PERONEAL NERVE: Intact MEDIAL COMPARTMENT: MEDIAL MENISCUS: Intact MEDIAL ARTICULAR SURFACE: No chondromalacia. No subarticular bone marrow edema. POSTERIOR MEDIAL COMPARTMENT: Medial collateral ligament complex intact. The semimembranosus tendon intact. No ramp lesion of the posterior horn of medial meniscus present. PATELLOFEMORAL COMPARTMENT: PATELLOFEMORAL ARTICULAR CARTILAGE: Patellar facet chondromalacia. ANTERIOR LIGAMENTS: Patellar ligament and quadriceps tendon are intact. MR/MR knee RT wo con IMPRESSION: Large joint effusion with mild synovial inflammation. Bone marrow edematous changes in region of the tibial spine. Minimal facet chondromalacia patella with underlying bone marrow edema. 7.3 cm popliteal cyst. Intact ACL and menisci. Impression dictated by: Juan Nowak M.D.08/24/2023 12:54 PM Dictation Location: [place] [address] Transcribed By: [facility] 08/24/23 1254 Dictated By: Juan Nowak DO 08/24/23 1235 Signed By: 08/24/23 1254 Normal [facility] Neutrophils [#/volume] in Bl ood by Automated countOrdered By: Ab Blood on 08-24-2023 Neutrophils (Bld) [#/Vol] 5.8 10*3/uL Normal 1.8-7.7 [facility] Comment on above: Performed By: #### E SR, CBC, CREAT, HEPATIC #### [facility] [address] Performed By: #### H EPATIC, CBC, CREAT, ESR ####[facility] [id number] [place] [address] No Panel InformationOrdered By: Ab Blood on 08-24-2023 Estimated GFR (CKD-EPI) > 60.0 mL/Min [facility] Creatinine Clearance (Chem N/A [facility] Nucleated erythrocytes [Pres ence] in Blood by Automated countOrdered By: Ab Blood on 08-24-2023 Nucleated RBC Auto Ql (Bld) 0.1 /100{WBC} 0-0.5 [facility] Platelet mean volume [Entiti c volume] in Blood by Automated countOrdered By: Ab Blood on 08-24-2023 Platelet mean volume (Bld) [Entitic vol] 7.3 fL Normal 6.6-10.1 [facility] Comment on above: Performed By: #### E SR, CBC, CREAT, HEPATIC #### [facility] [address] Performed By: #### H EPATIC, CBC, CREAT, ESR ####[facility] [id number] Platelets [#/volume] in Bloo d by Automated countOrdered By: Ab Blood on 08-24-2023 Platelets (Bld) [#/Vol] 402 10*3/uL Normal 150-450 [facility] Comment on above: Performed By: #### E SR, CBC, CREAT, HEPATIC #### [facility] [address] [place] [address] Performed By: #### H EPATIC, CBC, CREAT, ESR ####[address] Protein [Mass/volume] in Ser um or PlasmaOrdered By: Ab Blood on 08-24-2023 Protein [Mass/Vol] 7.5 g/dL Normal 6.4-8.9 [facility] Comment on above: Performed By: #### E SR, CBC, CREAT, HEPATIC #### [facility] [address] [place] [address] Performed By: #### H EPATIC, CBC, CREAT, ESR ####[address] Serum globulin measurement b y calculation (mass/volume)Ordered By: Ab Blood on 08-24-2023 Globulin (S) [Mass/Vol] 3.0 g/dL Normal [facility] Comment on above: Performed By: #### E SR, CBC, CREAT, HEPATIC #### [facility] [address] [place] [address] Performed By: #### H EPATIC, CBC, CREAT, ESR ####[address] Serum or plasma albumin/glob ulin mass ratioOrdered By: Ab Blood on 08-24-2023 Albumin/Globulin [Mass ratio] 1.5 {ratio} Normal [facility] Comment on above: Performed By: #### E SR, CBC, CREAT, HEPATIC #### [facility] [address] [place] [address] Performed By: #### H EPATIC, CBC, CREAT, ESR ####[address] Serum or plasma non-glucuron idated bilirubin measurement (mass/volume)Ordered By: Ab Blood on 08-24-2023 Bilirubin.indirect [Mass/Vol] 0.7 mg/dL [facility] XR knee RT 3V - NOT FOR ER U [place] 08-09-2023 XR knee RT 3V - NOT FOR ER USE [facility] [address] [place] [address] XRay Report Signed Patient: Ab Rivera MR#: [id number] : 1980 Acct:[id number] Age/Sex: 42 / M ADM Date: 08/09/23 [place] [facility] [place]: Type: [facility] CLI Attending Dr: Michael Crocker DO Copies to: Michael Crocker DO Ordering Provider: Michael Crocker DO Date of Service: 08/09/23 XR/XR knee RT 3V - NOT FOR ER USE: Acute pain of right knee RIGHT KNEE - 3 views COMPARISON: None CLINICAL DATA: Right knee pain after feeling a posterior pop. No other trauma. AP, lateral and sunrise views were obtained. There is no acute fracture or dislocation. There is minimal narrowing at the medial tibiofemoral and patellofemoral joint compartments. No patellar subluxation is seen. There is minor marginal spurring. There is a small knee effusion. Varicosities are present along the lateral aspect of the knee. XR/XR knee RT 3V - NOT FOR ER USE IMPRESSION: MILD DEGENERATIVE CHANGE. NO ACUTE BONY FINDINGS. Impression dictated by: Diamond Levin M.D.08/09/2023 11:04 AM Dictation Location: [place] [address] Transcribed By: [facility] 08/09/23 1104 Dictated By: Diamond Levin MD 08/09/23 1102 Signed By: 08/09/23 1104 Normal [facility] Alanine aminotransferase [En zymatic activity/volume] in Serum or PlasmaOrdered By: Ab Blood on 07-05-2023 ALT [Catalytic activity/Vol] 24 U/L Normal [facility] Comment on above: Performed By: #### H EPATIC, CREAT, CBC, ESR ####[facility] [id number] [place] [id number] [facility] Albumin [Mass/volume] in Ser um or Plasma by Bromocresol green (BCG) dye binding methoOrdered By: Ab Blood on 07-05-2023 Albumin BCG dye [Mass/Vol] 4.3 g/dL 3.5-5.7 [facility] Alkaline phosphatase [Enzyma tic activity/volume] in Serum or PlasmaOrdered By: Ab Blood on 07-05-2023 ALP [Catalytic activity/Vol] 76 U/L Normal 34-104 [facility] Comment on above: Performed By: #### H EPATIC, CREAT, CBC, ESR ####[address] Aspartate aminotransferase [ Enzymatic activity/volume] in Serum or PlasmaOrdered By: Ab Blood on 07-05-2023 AST [Catalytic activity/Vol] 21 U/L Normal 13-39 [facility] Comment on above: Performed By: #### H EPATIC, CREAT, CBC, ESR ####[address] Automated basophil %Ordered By: Ab Blood on 07-05-2023 Basophils/100 WBC (Bld) 1.3 % Normal . [facility] Comment on above: Performed By: #### H EPATIC, CREAT, CBC, ESR ####[address] Automated basophil countOrde red By: Ab Blood on 07-05-2023 Basophils (Bld) [#/Vol] 0.1 10*3/uL Normal 0.0-0.2 [facility] Comment on above: Performed By: #### H EPATIC, CREAT, CBC, ESR ####[address] Automated blood monocyte cou ntOrdered By: Ab Blood on 07-05-2023 Monocytes (Bld) [#/Vol] 0.4 10*3/uL Normal 0.0-0.8 [facility] Comment on above: Performed By: #### H EPATIC, CREAT, CBC, ESR ####[address] Automated eosinophil %Ordere d By: Ab Blood on 07-05-2023 Eosinophils/100 WBC (Bld) 1.9 % Normal . [facility] Comment on above: Performed By: #### H EPATIC, CREAT, CBC, ESR ####[address] Automated eosinophil countOr dered By: Ab Blood on 07-05-2023 Eosinophils (Bld) [#/Vol] 0.2 10*3/uL Normal 0.0-0.45 [facility] Comment on above: Performed By: #### H EPATIC, CREAT, CBC, ESR ####[address] Automated monocyte %Ordered By: Ab Blood on 07-05-2023 Monocytes/100 WBC (Bld) 5.3 % Normal . [facility] Comment on above: Performed By: #### H EPATIC, CREAT, CBC, ESR ####[address] Automated neutrophil %Ordere d By: Ab Blood on 07-05-2023 Neutrophils/100 WBC (Bld) 73.5 % Normal . [facility] Comment on above: Performed By: #### H EPATIC, CREAT, CBC, ESR ####[address] Bilirubin.direct [Mass/volum e] in Serum or PlasmaOrdered By: Ab Blood on 07-05-2023 Bilirubin.direct [Mass/Vol] 0.10 mg/dL 0.03-0.18 [facility] Bilirubin.total [Mass/volume ] in Serum or PlasmaOrdered By: Ab Blood on 07-05-2023 Bilirubin [Mass/Vol] 0.7 mg/dL Normal 0.3-1.0 [facility] Comment on above: Performed By: #### H EPATIC, CREAT, CBC, ESR ####[address] Complete Blood Count Auto Di ffon 07-05-2023 Mean Corpuscular HGB Conc 33.5 g/dL Normal 32.5-35.6 [facility] Comment on above: Performed By: #### H EPATIC, CREAT, CBC, ESR ####[place] [id number] [place] [id number] [facility] NRBC% 0.1 /100{WBC} Normal 0-0.5 [facility] Comment on above: Performed By: #### H EPATIC, CREAT, CBC, ESR ####[place] [id number] [facility] Creatinineon 07-05-2023 GFR/1.73 sq M.predicted MDRD (S/P/Bld) [Vol rate/Area] mL/min/{1.73_m2} Normal [facility] Comment on above: Result Comment: PERF ORMED BY: [facility] [address] [place] [address] PATHOLOGIST [employer] CADEN CUMMINGS M.D. Performed By: #### H EPATIC, CREAT, CBC, ESR ####[place] [id number] [facility] Creatinine [Mass/volume] in Serum or PlasmaOrdered By: Ab Blood on 07-05-2023 Creatinine [Mass/Vol] 0.92 mg/dL Normal 0.70-1.30 [facility] Comment on above: Performed By: #### H EPATIC, CREAT, CBC, ESR ####[place] [id number] [facility] Erythrocyte Sedimentation Ra florentino 07-05-2023 ESR (Bld) [Velocity] 41 mm/h High 0-14 [facility] Comment on above: Result Comment: PERF ORMED BY: [facility] [address] [place] [address] PATHOLOGIST [employer] CADEN CUMMINGS M.D. Performed By: #### H EPATIC, CREAT, CBC, ESR ####[place] [id number] [facility] Erythrocyte distribution wid th [Ratio] by Automated countOrdered By: Ab Blood on 07-05-2023 Erythrocyte distribution width (RBC) [Ratio] 15.6 % High 12.0-14.8 [facility] Comment on above: Performed By: #### H EPATIC, CREAT, CBC, ESR ####[address] Erythrocyte sedimentation ra te by Photometric methodOrdered By: Ab Blood on 07-05-2023 ESR Photometric method (Bld) [Velocity] 41 mm/hr 0-14 [facility] Erythrocytes [#/volume] in B lood by Automated countOrdered By: Ab Blood on 07-05-2023 RBC (Bld) [#/Vol] 4.53 10*6/uL Normal 3.90-5.60 [facility] Comment on above: Performed By: #### H EPATIC, CREAT, CBC, ESR ####[address] Hematocrit [Volume Fraction] of Blood by Automated countOrdered By: Ab Blood on 07-05-2023 Hematocrit (Bld) [Volume fraction] 38.8 % Normal 38.8-50.0 [facility] Comment on above: Performed By: #### H EPATIC, CREAT, CBC, ESR ####[place] [id number] [facility] Hemoglobin [Mass/volume] in BloodOrdered By: Ab Blood on 07-05-2023 Hemoglobin (Bld) [Mass/Vol] 13.0 g/dL Normal 13.0-17.0 [facility] Comment on above: Performed By: #### H EPATIC, CREAT, CBC, ESR ####[place] [id number] [facility] Hepatic Panelon 07-05-2023 Albumin [Mass/Vol] 4.3 g/dL Normal 3.5-5.7 [facility] Comment on above: Performed By: #### H EPATIC, CREAT, CBC, ESR ####[place] [id number] [place] Bilirubin,Indirect 0.6 mg/dL Normal [facility] Comment on above: Performed By: #### H EPATIC, CREAT, CBC, ESR ####[address] Bilirubin.indirect [Mass/Vol] 0.10 mg/dL Normal 0.03-0.18 [facility] Comment on above: Performed By: #### H EPATIC, CREAT, CBC, ESR ####[address] Leukocytes [#/volume] correc michelle for nucleated erythrocytes in Blood by Automated counOrdered By: Ab Blood on 07-05-2023 WBC corrected for nucl RBC Auto (Bld) [#/Vol] 8.2 10*3/uL 4.1-10.5 [facility] Leukocytes [#/volume] in Blo od by Automated countOrdered By: Ab Blood on 07-05-2023 WBC (Bld) [#/Vol] 8.2 10*3/uL Normal 4.1-10.5 [facility] Comment on above: Performed By: #### H EPATIC, CREAT, CBC, ESR ####[address] Lymphocytes [#/volume] in Bl ood by Automated countOrdered By: Ab Blood on 07-05-2023 Lymphocytes (Bld) [#/Vol] 1.5 10*3/uL Normal 1.00-4.8 [facility] Comment on above: Performed By: #### H EPATIC, CREAT, CBC, ESR ####[address] Lymphocytes/100 leukocytes i n Blood by Automated countOrdered By: Ab Blood on 07-05-2023 Lymphocytes/100 WBC (Bld) 18.0 % Normal . [facility] Comment on above: Performed By: #### H EPATIC, CREAT, CBC, ESR ####[address] MCH [Entitic mass] by Automa michelle countOrdered By: Ab Blood on 07-05-2023 MCH (RBC) [Entitic mass] 28.7 pg Normal 27.5-35.2 [facility] Comment on above: Performed By: #### H EPATIC, CREAT, CBC, ESR ####[address] MCHC Auto (RBC) [Mass/Vol]Or dered By: Ab Blood on 07-05-2023 MCHC (RBC) [Mass/Vol] 33.5 g/dL 32.5-35.6 [facility] MCV [Entitic volume] by Auto mated countOrdered By: Ab Blood on 07-05-2023 MCV (RBC) [Entitic vol] 85.6 fL Normal 83.5-101 F [facility] Comment on above: Performed By: #### H EPATIC, CREAT, CBC, ESR ####[address] Neutrophils [#/volume] in Bl ood by Automated countOrdered By: Ab Blood on 07-05-2023 Neutrophils (Bld) [#/Vol] 6.0 10*3/uL Normal 1.8-7.7 [facility] Comment on above: Performed By: #### H EPATIC, CREAT, CBC, ESR ####[address] No Panel InformationOrdered By: Ab Blood on 07-05-2023 Estimated GFR (CKD-EPI) > 60.0 mL/Min [facility] Creatinine Clearance (Chem N/A [facility] Nucleated erythrocytes [Pres ence] in Blood by Automated countOrdered By: Ab Blood on 07-05-2023 Nucleated RBC Auto Ql (Bld) 0.1 /100{WBC} 0-0.5 [facility] Platelet mean volume [Entiti c volume] in Blood by Automated countOrdered By: Ab Blood on 07-05-2023 Platelet mean volume (Bld) [Entitic vol] 7.1 fL Normal 6.6-10.1 [facility] Comment on above: Performed By: #### H EPATIC, CREAT, CBC, ESR ####[address] Platelets [#/volume] in Bloo d by Automated countOrdered By: Ab Blood on 07-05-2023 Platelets (Bld) [#/Vol] 382 10*3/uL Normal 150-450 [facility] Comment on above: Performed By: #### H EPATIC, CREAT, CBC, ESR ####[address] Protein [Mass/volume] in Ser um or PlasmaOrdered By: Ab Blood on 07-05-2023 Protein [Mass/Vol] 7.4 g/dL Normal 6.4-8.9 [facility] Comment on above: Performed By: #### H EPATIC, CREAT, CBC, ESR ####[address] Serum globulin measurement b y calculation (mass/volume)Ordered By: Ab Blood on 07-05-2023 Globulin (S) [Mass/Vol] 3.1 g/dL Normal F [facility] Comment on above: Performed By: #### H EPATIC, CREAT, CBC, ESR ####[address] Serum or plasma albumin/glob ulin mass ratioOrdered By: Ab Blood on 07-05-2023 Albumin/Globulin [Mass ratio] 1.4 {ratio} Normal [facility] Comment on above: Performed By: #### H EPATIC, CREAT, CBC, ESR ####[place] [id number] [facility] Serum or plasma non-glucuron idated bilirubin measurement (mass/volume)Ordered By: Ab Blood on 07-05-2023 Bilirubin.indirect [Mass/Vol] 0.6 mg/dL [facility] Alanine aminotransferase [En zymatic activity/volume] in Serum or PlasmaOrdered By: Ab Blood on 06-01-2023 ALT [Catalytic activity/Vol] 19 U/L Normal 7-52 [facility] Comment on above: Performed By: #### E SR, CBC, CREAT, HEPATIC #### [address] Albumin [Mass/volume] in Ser um or Plasma by Bromocresol green (BCG) dye binding methoOrdered By: Ab Blood on 06-01-2023 Albumin BCG dye [Mass/Vol] 4.7 g/dL 3.5-5.7 [facility] Alkaline phosphatase [Enzyma tic activity/volume] in Serum or PlasmaOrdered By: Ab Blood on 06-01-2023 ALP [Catalytic activity/Vol] 75 U/L Normal 34-104 [facility] Comment on above: Performed By: #### E SR, CBC, CREAT, HEPATIC #### [address] Aspartate aminotransferase [ Enzymatic activity/volume] in Serum or PlasmaOrdered By: Ab Blood on 06-01-2023 AST [Catalytic activity/Vol] 18 U/L Normal 13-39 [facility] Comment on above: Performed By: #### E SR, CBC, CREAT, HEPATIC #### [address] Automated basophil %Ordered By: Ab Blood on 06-01-2023 Basophils/100 WBC (Bld) 1.3 % Normal . [facility] Comment on above: Performed By: #### E SR, CBC, CREAT, HEPATIC #### [address] Automated basophil countOrde red By: Ab Blood on 06-01-2023 Basophils (Bld) [#/Vol] 0.1 10*3/uL Normal 0.0-0.2 [facility] Comment on above: Performed By: #### E SR, CBC, CREAT, HEPATIC #### [address] Automated blood monocyte cou ntOrdered By: Ab Blood on 06-01-2023 Monocytes (Bld) [#/Vol] 0.6 10*3/uL Normal 0.0-0.8 [facility] Comment on above: Performed By: #### E SR, CBC, CREAT, HEPATIC #### [address] Automated eosinophil %Ordere d By: Ab Blood on 06-01-2023 Eosinophils/100 WBC (Bld) 1.9 % Normal . [facility] Comment on above: Performed By: #### E SR, CBC, CREAT, HEPATIC #### [address] Automated eosinophil countOr dered By: Ab Blood on 06-01-2023 Eosinophils (Bld) [#/Vol] 0.2 10*3/uL Normal 0.0-0.45 [facility] Comment on above: Performed By: #### E SR, CBC, CREAT, HEPATIC #### [address] Automated monocyte %Ordered By: Ab Blood on 06-01-2023 Monocytes/100 WBC (Bld) 6.4 % Normal . [facility] Comment on above: Performed By: #### E SR, CBC, CREAT, HEPATIC #### [address] Automated neutrophil %Ordere d By: Ab Blood on 06-01-2023 Neutrophils/100 WBC (Bld) 65.6 % Normal . [facility] Comment on above: Performed By: #### E SR, CBC, CREAT, HEPATIC #### [address] Bilirubin.direct [Mass/volum e] in Serum or PlasmaOrdered By: Ab Blood on 06-01-2023 Bilirubin.direct [Mass/Vol] 0.20 mg/dL 0.03-0.18 [facility] Bilirubin.total [Mass/volume ] in Serum or PlasmaOrdered By: Ab Blood on 06-01-2023 Bilirubin [Mass/Vol] 1.0 mg/dL Normal 0.3-1.0 [facility] Comment on above: Performed By: #### E SR, CBC, CREAT, HEPATIC #### [address] Complete Blood Count Auto Di ffon 06-01-2023 Mean Corpuscular HGB Conc 33.3 g/dL Normal 32.5-35.6 [facility] Comment on above: Performed By: #### E SR, CBC, CREAT, HEPATIC #### [address] NRBC% 0.1 /100{WBC} Normal 0-0.5 [facility] Comment on above: Performed By: #### E SR, CBC, CREAT, HEPATIC #### [address] Creatinineon 06-01-2023 GFR/1.73 sq M.predicted MDRD (S/P/Bld) [Vol rate/Area] mL/min/{1.73_m2} Normal [facility] Comment on above: Result Comment: PERF ORMED BY: [place] [address] PATHOLOGIST [employer] CADEN CUMMINGS M.D. Performed By: #### E SR, CBC, CREAT, HEPATIC #### [address] Creatinine [Mass/volume] in Serum or PlasmaOrdered By: Ab Blood on 06-01-2023 Creatinine [Mass/Vol] 0.89 mg/dL Normal 0.70-1.30 [facility] Comment on above: Performed By: #### E SR, CBC, CREAT, HEPATIC #### [address] Erythrocyte Sedimentation Ra florentino 06-01-2023 ESR (Bld) [Velocity] 25 mm/h High 0-14 [facility] Comment on above: Result Comment: PERF ORMED BY: [place] [address] PATHOLOGIST [employer] CADEN CUMMINGS M.D. Performed By: #### E SR, CBC, CREAT, HEPATIC #### [address] Erythrocyte distribution wid th [Ratio] by Automated countOrdered By: Ab Blood on 06-01-2023 Erythrocyte distribution width (RBC) [Ratio] 16.1 % High 12.0-14.8 [facility] Comment on above: Performed By: #### E SR, CBC, CREAT, HEPATIC #### [address] Erythrocyte sedimentation ra te by Photometric methodOrdered By: Ab Blood on 06-01-2023 ESR Photometric method (Bld) [Velocity] 25 mm/hr 0-14 [facility] Erythrocytes [#/volume] in B lood by Automated countOrdered By: Ab Blood on 06-01-2023 RBC (Bld) [#/Vol] 4.81 10*6/uL Normal 3.90-5.60 [facility] Comment on above: Performed By: #### E SR, CBC, CREAT, HEPATIC #### [address] Hematocrit [Volume Fraction] of Blood by Automated countOrdered By: Ab Blood on 06-01-2023 Hematocrit (Bld) [Volume fraction] 41.5 % Normal 38.8-50.0 [facility] Comment on above: Performed By: #### E SR, CBC, CREAT, HEPATIC #### [address] Hemoglobin [Mass/volume] in BloodOrdered By: Ab Blood on 06-01-2023 Hemoglobin (Bld) [Mass/Vol] 13.8 g/dL Normal 13.0-17.0 [facility] Comment on above: Performed By: #### E SR, CBC, CREAT, HEPATIC #### [address] Hepatic Panelon 06-01-2023 Albumin [Mass/Vol] 4.7 g/dL Normal 3.5-5.7 [facility] Comment on above: Performed By: #### E SR, CBC, CREAT, HEPATIC #### [facility] [address] Bilirubin,Indirect 0.8 mg/dL Normal [facility] Comment on above: Performed By: #### E SR, CBC, CREAT, HEPATIC #### [facility] [address] Bilirubin.indirect [Mass/Vol] 0.20 mg/dL High 0.03-0.18 [facility] Comment on above: Performed By: #### E SR, CBC, CREAT, HEPATIC #### [facility] [address] Leukocytes [#/volume] correc michelle for nucleated erythrocytes in Blood by Automated counOrdered By: Ab Blood on 06-01-2023 WBC corrected for nucl RBC Auto (Bld) [#/Vol] 9.5 10*3/uL 4.1-10.5 [facility] Leukocytes [#/volume] in Blo od by Automated countOrdered By: Ab Blood on 06-01-2023 WBC (Bld) [#/Vol] 9.5 10*3/uL Normal 4.1-10.5 [facility] Comment on above: Performed By: #### E SR, CBC, CREAT, HEPATIC #### [address] Lymphocytes [#/volume] in Bl ood by Automated countOrdered By: Ab Blood on 06-01-2023 Lymphocytes (Bld) [#/Vol] 2.4 10*3/uL Normal 1.00-4.8 [facility] Comment on above: Performed By: #### E SR, CBC, CREAT, HEPATIC #### [facility] [address] [place] [address] [place] Lymphocytes/100 leukocytes i n Blood by Automated countOrdered By: Ab Blood on 06-01-2023 Lymphocytes/100 WBC (Bld) 24.8 % Normal . [facility] Comment on above: Performed By: #### E SR, CBC, CREAT, HEPATIC #### [facility] [address] [place] [address] [place] MCH [Entitic mass] by Automa michelle countOrdered By: Ab Blood on 06-01-2023 MCH (RBC) [Entitic mass] 28.7 pg Normal 27.5-35.2 [facility] Comment on above: Performed By: #### E SR, CBC, CREAT, HEPATIC #### [facility] [address] [place] [address] MCHC Auto (RBC) [Mass/Vol]Or dered By: Ab Blood on 06-01-2023 MCHC (RBC) [Mass/Vol] 33.3 g/dL 32.5-35.6 [facility] MCV [Entitic volume] by Auto mated countOrdered By: Ab Blood on 06-01-2023 MCV (RBC) [Entitic vol] 86.2 fL Normal 83.5-101 F [facility] Comment on above: Performed By: #### E SR, CBC, CREAT, HEPATIC #### [facility] [address] [place] [address] Neutrophils [#/volume] in Bl ood by Automated countOrdered By: Ab Blood on 06-01-2023 Neutrophils (Bld) [#/Vol] 6.2 10*3/uL Normal 1.8-7.7 [facility] Comment on above: Performed By: #### E SR, CBC, CREAT, HEPATIC #### [facility] [address] [place] [address] No Panel InformationOrdered By: Ab Blood on 06-01-2023 Estimated GFR (CKD-EPI) > 60.0 mL/Min [facility] Creatinine Clearance (Chem N/A [facility] Nucleated erythrocytes [Pres ence] in Blood by Automated countOrdered By: Ab Blood on 06-01-2023 Nucleated RBC Auto Ql (Bld) 0.1 /100{WBC} 0-0.5 [facility] Platelet mean volume [Entiti c volume] in Blood by Automated countOrdered By: Ab Blood on 06-01-2023 Platelet mean volume (Bld) [Entitic vol] 7.6 fL Normal 6.6-10.1 [facility] Comment on above: Performed By: #### E SR, CBC, CREAT, HEPATIC #### [facility] [address] [place] [address] Platelets [#/volume] in Bloo d by Automated countOrdered By: Ab Blood on 06-01-2023 Platelets (Bld) [#/Vol] 354 10*3/uL Normal 150-450 [facility] Comment on above: Performed By: #### E SR, CBC, CREAT, HEPATIC #### [address] Protein [Mass/volume] in Ser um or PlasmaOrdered By: Ab Blood on 06-01-2023 Protein [Mass/Vol] 7.7 g/dL Normal 6.4-8.9 [facility] Comment on above: Performed By: #### E SR, CBC, CREAT, HEPATIC #### [facility] [address] [place] [address] Serum globulin measurement b y calculation (mass/volume)Ordered By: Ab Blood on 06-01-2023 Globulin (S) [Mass/Vol] 3.0 g/dL Normal F [facility] Comment on above: Performed By: #### E SR, CBC, CREAT, HEPATIC #### [address] Serum or plasma albumin/glob ulin mass ratioOrdered By: Ab Blood on 06-01-2023 Albumin/Globulin [Mass ratio] 1.6 {ratio} Normal [facility] Comment on above: Performed By: #### E SR, CBC, CREAT, HEPATIC #### [address] Serum or plasma non-glucuron idated bilirubin measurement (mass/volume)Ordered By: Ab Blood on 06-01-2023 Bilirubin.indirect [Mass/Vol] 0.8 mg/dL [facility] A1C with Estimated Average G antonion 03-22-2023 Glucose [Mass/Vol] 117 mg/dL Normal [facility] Comment on above: Result Comment: PERF ORMED BY: [address] [place] [id number] PATHOLOGIST [employer] CADEN CUMMINGS M.D. Performed By: #### A DDONUAPLUS, FE PRO, TSH3, A1C [facility] eA, PSAS, LIPID ####[facility] [place] [address] [facility] Automated erythrocytes count in urine sediment (number/area)Ordered By: Dinora Meng on 03-22-2023 RBC Auto (Urine sed) [#/Area] 0-1 [HPF] 0-4 [facility] Automated leukocytes count i n urine sediment (number/area)Ordered By: Dinora Meng on 03-22-2023 WBC Auto (Urine sed) [#/Area] 0-1 [HPF] 0-4 [facility] Automated urine color determ inationOrdered By: Dinora Meng on 03-22-2023 Color (U) Yellow Normal Yellow [facility] Comment on above: Order Comment: Name Collection Type:: Clean-Voided Midstream Performed By: #### A DDONUAPLUS, FE PRO, TSH3, [address] eA, PSAS, LIPID ####[facility] [place] [address] [facility] Bilirubin Test strip Ql (U)O rdered By: Dinora Meng on 03-22-2023 Bilirubin Ql (U) Negative Negative [facility] Cholesterol [Mass/volume] in Serum or PlasmaOrdered By: Dinora Meng on 03-22-2023 Cholesterol [Mass/Vol] 172 mg/dL Normal 140-200 [facility] Comment on above: Chol less than 200 m g/dl low riskChol 201-239 mg/dl borderline riskChol 240 mg/dl and greater high risk Result Comment: Chol less than 200 mg/dl low risk Chol 201-239 mg/dl borderline risk Chol 240 mg/dl and greater high risk Performed By: #### A DDONUAPLUS, FE PRO, TSH3, A1C [facility] eA, PSAS, LIPID ####[facility] [place] [id number] [facility] Cholesterol in LDL Calc [Mas s/Vol]Ordered By: Dinora Meng on 03-22-2023 Cholesterol in LDL [Mass/Vol] 97 mg/dL 0-100 [facility] Comment on above: LDL ATP III CLASSIFI CATIONLDL less than 100 mg/dL OptimalLDL 100-129 mg/dL Near or above optimalLDL 130-159 mg/dL Borderline highLDL 160-189 mg/dL HighLDL greater than 189 mg/dL Very high Cholesterol in VLDL Calc [Ma ss/Vol]Ordered By: Dinora Meng on 03-22-2023 Cholesterol in VLDL [Mass/Vol] 14 mg/dL [facility] Dipstick and Microscopicon 0 03-22-2023 Appearance (U) Clear Normal Clear [facility] Comment on above: Order Comment: Name Collection Type:: Clean-Voided Midstream Performed By: #### A DDONUAPLUS, FE PRO, TSH3, A1C WTH eA, PSAS, LIPID ####[place] [id number] [place] [id number] [facility] Bacteria,Urine None Seen Normal None Seen [facility] Comment on above: Order Comment: Name Collection Type:: Clean-Voided Midstream Performed By: #### A DDONUAPLUS, FE PRO, TSH3, A1C WTH eA, PSAS, LIPID ####[place] [id number] [place] [address] [facility] Bilirubin,Urine Negative Normal Negative [facility] Comment on above: Order Comment: Name Collection Type:: Clean-Voided Midstream Performed By: #### A DDONUAPLUS, FE PRO, TSH3, A1C WTH eA, PSAS, LIPID ####[place] [address] [place] [address] [facility] Glucose Ql (U) Normal Normal Normal [facility] Comment on above: Order Comment: Name Collection Type:: Clean-Voided Midstream Performed By: #### A DDONUAPLUS, FE PRO, TSH3, A1C WTH eA, PSAS, LIPID ####[place] [id number] [place] [id number] [facility] Hyaline Casts,Urine 0-8 Normal 0-8 [facility] Comment on above: Order Comment: Name Collection Type:: Clean-Voided Midstream Result Comment: PERF ORMED BY: [facility] [address] [place] [id number] PATHOLOGIST [employer] CADEN CUMMINGS M.D. Performed By: #### A DDONUAPLUS, FE PRO, TSH3, A1C WTH eA, PSAS, LIPID ####[address] Ketones Ql (U) Trace High Negative [facility] Comment on above: Order Comment: Name Collection Type:: Clean-Voided Midstream Performed By: #### A DDONUAPLUS, FE PRO, TSH3, A1C WTH eA, PSAS, LIPID ####[address] Leukocyte esterase Test strip Ql (U) Negative Normal Negative [facility] Comment on above: Order Comment: Name Collection Type:: Clean-Voided Midstream Performed By: #### A DDONUAPLUS, FE PRO, TSH3, A1C WTH eA, PSAS, LIPID ####[address] Nitrite,Urine Negative Normal Negative [facility] Comment on above: Order Comment: Name Collection Type:: Clean-Voided Midstream Performed By: #### A DDONUAPLUS, FE PRO, TSH3, A1C WTH eA, PSAS, LIPID ####[address] Occult Blood,Urine Negative Normal Negative [facility] Comment on above: Order Comment: Name Collection Type:: Clean-Voided Midstream Performed By: #### A DDONUAPLUS, FE PRO, TSH3, A1C WTH eA, PSAS, LIPID ####[place] [id number] [facility] Protein,Urine Trace High Negative [facility] Comment on above: Order Comment: Name Collection Type:: Clean-Voided Midstream Performed By: #### A DDONUAPLUS, FE PRO, TSH3, A1C WTH eA, PSAS, LIPID ####[place] [id number] [facility] RBC LM.HPF (Urine sed) [#/Area] 0 /[HPF] Normal 0-4 [facility] Comment on above: Order Comment: Name Collection Type:: Clean-Voided Midstream Performed By: #### A DDONUAPLUS, FE PRO, TSH3, A1C WTH eA, PSAS, LIPID ####[address] Specificy [place],Urine 1.025 Normal 1.001-1.030 [facility] Comment on above: Order Comment: Name Collection Type:: Clean-Voided Midstream Performed By: #### A DDONUAPLUS, FE PRO, TSH3, A1C WTH eA, PSAS, LIPID ####[address] Squamous Epithelial Cell,Urine None Seen Normal 0-2 [facility] Comment on above: Order Comment: Name Collection Type:: Clean-Voided Midstream Performed By: #### A DDONUAPLUS, FE PRO, TSH3, A1C WTH eA, PSAS, LIPID ####[address] Urobilinogen,Urine Normal Normal Normal [facility] Comment on above: Order Comment: Name Collection Type:: Clean-Voided Midstream Performed By: #### A DDONUAPLUS, FE PRO, TSH3, A1C WTH eA, PSAS, LIPID ####[address] WBC LM.HPF (Urine sed) [#/Area] 0 /[HPF] Normal 0-4 [facility] Comment on above: Order Comment: Name Collection Type:: Clean-Voided Midstream Performed By: #### A DDONUAPLUS, FE PRO, TSH3, A1C WTH eA, PSAS, LIPID ####[address] FE PROon 03-22-2023 % Iron Saturation 16.7 % Low 20-50 [facility] Comment on above: Performed By: #### A DDONUAPLUS, FE PRO, TSH3, A1C WTH eA, PSAS, LIPID ####[address] Total Iron Binding Capacity 378 ug/dL Normal 255-450 [facility] Comment on above: Performed By: #### A DDONUAPLUS, FE PRO, TSH3, A1C WTH eA, PSAS, LIPID ####[place] [id number] [place] [address] [facility] Ferritin [Mass/volume] in Se rum or PlasmaOrdered By: Dinora Meng on 03-22-2023 Ferritin [Mass/Vol] 35.4 ng/mL Normal 23.9-336.2 [facility] Comment on above: Performed By: #### A DDONUAPLUS, FE PRO, TSH3, A1C WTH eA, PSAS, LIPID ####[place] [id number] [place] [id number] [facility] Glucose mean value [Mass/vol ume] in Blood Estimated from glycated hemoglobinOrdered By: Dinora Meng on 03-22-2023 Average glucose Estimated from glycated hemoglobin (Bld) [Mass/Vol] 117 mg/dL [facility] Hemoglobin A1c percentageOrd ered By: Dinora Meng on 03-22-2023 HbA1c (Bld) [Mass fraction] 5.7 % High 4.3-5.6 [facility] Comment on above: Increased risk for d iabetes: 5.7 - 6.4diabetes: >6.4glycemic control for adults with diabetes: <7.0 Result Comment: Incr eased risk for diabetes: 5.7 - 6.4 diabetes: >6.4 glycemic control for adults with diabetes: <7.0 Performed By: #### A DDONUAPLUS, FE PRO, TSH3, A1C WTH eA, PSAS, LIPID ####[facility] [place] [address] [place] Iron [Mass/volume] in Serum or PlasmaOrdered By: Dinora Meng on 03-22-2023 Iron [Mass/Vol] 63 ug/dL Normal 50-212 [facility] Comment on above: Performed By: #### A DDONUAPLUS, FE PRO, TSH3, A1C WTH eA, PSAS, LIPID ####[place] [address] [place] [address] [place] Iron binding capacity [Mass/ volume] in Serum or PlasmaOrdered By: Dinora Meng on 03-22-2023 Iron binding capacity [Mass/Vol] 378 ug/dL 255-450 [facility] Iron saturation [Mass Fracti on] in Serum or PlasmaOrdered By: Dinora Meng on 03-22-2023 Iron saturation [Mass fraction] 16.7 % 20-50 [facility] Ketones Auto test strip (U) [Mass/Vol]Ordered By: Dinora Meng on 03-22-2023 Ketones (U) [Mass/Vol] Trace Negative Fi [facility] - UrinalysisOrder ed By: Dinora Meng on 03-22-2023 Hyaline casts LM Ql (Urine sed) 0-8 [LPF] 0-8 [facility] Lipid Panelon 03-22-2023 LDL Cholesterol,Calculated 97 mg/dL Normal 0-100 [facility] Comment on above: Result Comment: LDL ATP III CLASSIFICATION LDL less than 100 mg/dL Optimal LDL 100-129 mg/dL Near or above optimal LDL 130-159 mg/dL Borderline high LDL 160-189 mg/dL High LDL greater than 189 mg/dL Very high Performed By: #### A DDONUAPLUS, FE PRO, TSH3, A1C WTH eA, PSAS, LIPID ####[facility] Triglyceride w/Reflex 72 mg/dL Normal 0-149 [facility] Comment on above: Result Comment: TRIG ATP III CLASSIFICATION TRIG less than 150 mg/dL Normal TRIG 150-199 mg/dL Borderline high TRIG 200-500 mg/dL High TRIG greater than 500 mg/dL Very high Standard traceable to the Center for Disease Conrtrol and Prevention (CDC) test method. Performed By: #### A DDONUAPLUS, FE PRO, TSH3, A1C WTH eA, PSAS, LIPID ####[place] [id number] [address] VLDL CHOLESTEROL 14 mg/dL Normal [facility] Comment on above: Performed By: #### A DDONUAPLUS, FE PRO, TSH3, A1C WTH eA, PSAS, LIPID ####[facility] Nitrite Test strip Ql (U)Ord ered By: Dinora Megn on 03-22-2023 Nitrite Ql (U) Negative Negative [facility] PSA Screen (Yearly Only)on 0 03-22-2023 PSA Screen (Yearly Only) 0.550 ng/mL Normal 0.000-4.000 [facility] Comment on above: Order Comment: Is pa tient <50 yrs? Medicare does not pay <50.: N What is the date of the last PSA Screen?: 06/19/20 Is Medicare the insurance?: N Did you verify eligibility (Dx Time) check TestViewGp: YES TO ALL Result Comment: PERF ORMED BY: [facility] [address] [place] [id number] PATHOLOGIST [employer] CADEN CUMMINGS M.D. Performed By: #### A DDONUAPLUS, FE PRO, TSH3, A1C WTH eA, PSAS, LIPID ####[facility] [id number] [place] [id number] [facility] Prostate specific Ag [Mass/v olume] in Serum or PlasmaOrdered By: Dinora Meng on 03-22-2023 Prostate specific Ag [Mass/Vol] 0.550 ng/mL 0.000-4.000 [facility] Protein Auto test strip (U) [Mass/Vol]Ordered By: Dinora Meng on 03-22-2023 Protein (U) [Mass/Vol] Trace mg/dL Negative F [facility] Serum or plasma high density lipoprotein (HDL) cholesterol measurementOrdered By: Dinora Meng on 03-22-2023 Cholesterol in HDL [Mass/Vol] 61 mg/dL Normal 23-92 [facility] Comment on above: HDL CHOL ATP-III CLA SSIFICATION Cardiovascular RiskHDL > or equal to 60 mg/dL LOWHDL < 40 mg/dL HIGH Result Comment: HDL CHOL ATP-III CLASSIFICATION Cardiovascular Risk HDL > or equal to 60 mg/dL LOW HDL < 40 mg/dL HIGH Performed By: #### A DDONUAPLUS, FE PRO, TSH3, A1C WTH eA, PSAS, LIPID ####[facility] [id number] [place] [id number] [facility] Serum or plasma total choles terol/high density lipoprotein (HDL) cholesterol mass ratOrdered By: Dinora Meng on 03-22-2023 Cholesterol.total/Shraddha sterol in HDL [Mass ratio] 2.8 {ratio} Normal <5.0 [facility] Comment on above: Performed By: #### A DDONUAPLUS, FE PRO, TSH3, A1C WTH eA, PSAS, LIPID ####[place] [id number] [place] [id number] [facility] Specific gravity Auto test s trip (U) [Rel density]Ordered By: Dinora Meng on 03-22-2023 Specific gravity (U) [Rel density] 1.025 1.001-1.030 [facility] Squamous epithelial cells de tection in urine sediment by light microscopyOrdered By: Dinora Meng on 03-22-2023 Epithelial cells.squamous LM Ql (Urine sed) None seen [HPF] 0-2 [facility] Thyrotropin [Units/volume] i n Serum or PlasmaOrdered By: Dinora Meng on 03-22-2023 TSH Qn 0.84 m[IU]/L Normal 0.45-5.33 [facility] Comment on above: Result Comment: PERF ORMED BY: [facility] [address] [place] [address] PATHOLOGIST [employer] CADEN CUMMINGS M.D. Performed By: #### A DDONUAPLUS, FE PRO, TSH3, A1C [facility] eA, PSAS, LIPID ####[place] [id number] [place] [id number] [facility] Transferrin [Mass/volume] in Serum or PlasmaOrdered By: Dinora Meng on 03-22-2023 Transferrin [Mass/Vol] 270 mg/dL Normal 203-362 [facility] Comment on above: Performed By: #### A DDONUAPLUS, FE PRO, TSH3, A1C WTH eA, PSAS, LIPID ####[place] [id number] [place] [id number] [facility] Triglyceride [Mass/volume] i n Serum or PlasmaOrdered By: Dinora Meng on 03-22-2023 Triglyceride [Mass/Vol] 72 mg/dL 0-149 [facility] Comment on above: TRIG ATP III CLASSIF ICATIONTRIG less than 150 mg/dL NormalTRIG 150-199 mg/dL Borderline highTRIG 200-500 mg/dL High TRIG greater than 500 mg/dL Very highStandard traceable to the Center for Disease Conrtrol and Prevention (CDC) test method. Urine bacteria detection by automated methodOrdered By: Dinora Meng on 03-22-2023 Bacteria Auto Ql (U) None seen None Seen [facility] Urine clarity by refractomet ry automatedOrdered By: Dinora Meng on 03-22-2023 Clarity Refractometry automated (U) Clear Clear [facility] Urine glucose measurement by automated test strip (mass/volume)Ordered By: Dinora Meng on 03-22-2023 Glucose Auto test strip (U) [Mass/Vol] Normal mg/dL Normal [facility] Urine hemoglobin detection b y automated test stripOrdered By: Dinora Meng on 03-22-2023 Hemoglobin Auto test strip Ql (U) Negative Negative [facility] Urine leukocyte esterase det ection by automated test stripOrdered By: Dinora Meng on 03-22-2023 Leukocyte esterase Auto test strip Ql (U) Negative Negative [facility] Urine pH measurement by auto mated test stripOrdered By: Dinora Meng on 03-22-2023 pH (U) 6.5 [pH] Normal 5.0-9.0 [facility] Comment on above: Order Comment: Name Collection Type:: Clean-Voided Midstream Performed By: #### A DDONUAPLUS, FE PRO, TSH3, A1C WTH eA, PSAS, LIPID ####[facility] [id number] Urobilinogen Auto test strip (U) [Mass/Vol]Ordered By: Dinora Meng on 03-22-2023 Urobilinogen (U) [Mass/Vol] Normal mg/dL Normal [facility] XR foot BI 2Von 03-22-2023 XR foot BI 2V [facility] [address] [place] [id number] XRay Report Signed Patient: Ab Rivera MR#: [id number] : 1980 Acct:[id number] Age/Sex: 42 / M ADM Date: 03/22/23 Loc: ICXD Room: Type: [facility] Attending Dr: Ab Blood MD Copies to: Ab Blood MD Ordering Provider: Ab Blood MD Date of Service: 03/22/23 XR/XR chest 2V*: RA IMMUNOSUPRESSION ([id number]) XR/XR foot BI 2V: PAIN ([id number]) XR/XR hand BI 2V: PAIN CLINICAL DATA: Pain and swelling at the hands and feet. History of rheumatoid arthritis. No injury. PA AND LATERAL CHEST: COMPARISON: 04/30/2019 There is mild atelectasis and/or scarring at the bases, greater on the left. There is no focal parenchymal consolidation, effusion or pneumothorax. The cardiac, hilar and mediastinal silhouettes are within normal limits. There is no vascular congestion. The visualized bony thorax is intact. Mild endplate spurring is seen XR/XR chest 2V* IMPRESSION: BASILAR ATELECTASIS AND/OR SCARRING, GREATER ON THE LEFT. BILATERAL HANDS - 2 views each COMPARISON: 08/01/2016 AP and lateral views were obtained. No fracture or dislocation is identified. There is no disproportionate joint space narrowing or hypertrophy. No soft tissue swelling is identified. IMPRESSION: NO ACUTE BONY FINDINGS. BILATERAL FEET - 2 views COMPARISON: 08/01/2016 AP and lateral views were obtained. There is new postoperative change at the right foot. There is a plate bridging the first metatarsal phalangeal joint. There is a fracture within the plate proximally. There is also a screw that traverses that joint. There is irregularity and hypertrophy at the margins of the intervening bone. Findings suggest bunionectomy. There are small screws at the heads of the second and third metatarsals. There is also subtle deformity involving the heads of all the metatarsals and the base of the proximal phalanx of the second toe. There has been interval resection of the heads of the proximal phalanx of the second and third digits. There is a moderate size right plantar calcaneal spur. On the left, there is no acute fracture or dislocation. A plantar calcaneal spur is visualized. There is no other significant degenerative change. IMPRESSION: NEW POSTOPERATIVE CHANGES INVOLVING THE RIGHT FOOT. CALCANEAL SPURS. Impression dictated by: Diamond Levin M.D.03/22/2023 8:40 PM Dictation Location: [place] [address] Transcribed By: MAGNOLIA 03/22/232039 Dictated By: Diamond Levin MD 03/22/232028 Signed By: 03/22/232039 Normal [facility] Alanine aminotransferase [En zymatic activity/volume] in Serum or PlasmaOrdered By: Ab Blood on 02-15-2023 ALT [Catalytic activity/Vol] 17 U/L 7-52 [facility] Albumin [Mass/volume] in Ser um or Plasma by Bromocresol green (BCG) dye binding methoOrdered By: Ab Blood on 02-15-2023 Albumin BCG dye [Mass/Vol] 4.4 g/dL 3.5-5.7 [facility] Alkaline phosphatase [Enzyma tic activity/volume] in Serum or PlasmaOrdered By: Ab Blood on 02-15-2023 ALP [Catalytic activity/Vol] 77 U/L 34-104 [facility] Aspartate aminotransferase [ Enzymatic activity/volume] in Serum or PlasmaOrdered By: Ab Blood on 02-15-2023 AST [Catalytic activity/Vol] 15 U/L 13-39 [facility] Basophils Auto (Bld) [#/Vol] Ordered By: Ab Blood on 02-15-2023 Basophils (Bld) [#/Vol] 0.1 10*3/uL 0.0-0.2 [facility] Basophils/100 WBC Auto (Bld) Ordered By: Ab Blood on 02-15-2023 Basophils/100 WBC (Bld) 1.1 % . F [facility] Bilirubin.total [Mass/volume ] in Serum or PlasmaOrdered By: Ab Blood on 02-15-2023 Bilirubin [Mass/Vol] 0.7 mg/dL 0.3-1.0 [facility] C reactive protein [Mass/vol ume] in Serum or PlasmaOrdered By: Ab Blood on 02-15-2023 CRP [Mass/Vol] 2.9 mg/dL 0.0-0.5 [facility] Calcium [Mass/volume] in Ser um or PlasmaOrdered By: Ab Blood on 02-15-2023 Calcium [Mass/Vol] 9.8 mg/dL 8.6-10.3 [facility] Carbon dioxide, total [Moles /volume] in Serum or PlasmaOrdered By: Ab Blood on 02-15-2023 CO2 [Moles/Vol] 27.1 mmol/L 21.0-31.0 [facility] Chloride [Moles/volume] in S radha or PlasmaOrdered By: Ab Blood on 02-15-2023 Chloride [Moles/Vol] 103 mmol/L 98-107 [facility] Creatinine [Mass/volume] in Serum or PlasmaOrdered By: Ab Blood on 02-15-2023 Creatinine [Mass/Vol] 0.91 mg/dL 0.70-1.30 [facility] Eosinophils Auto (Bld) [#/Vo l]Ordered By: Ab Blood on 02-15-2023 Eosinophils (Bld) [#/Vol] 0.2 10*3/uL 0.0-0.45 [facility] Eosinophils/100 WBC Auto (Bl d)Ordered By: Ab Blood on 02-15-2023 Eosinophils/100 WBC (Bld) 2.0 % . [facility] Erythrocyte distribution wid th Auto (RBC) [Ratio]Ordered By: Ab Blood on 02-15-2023 Erythrocyte distribution width (RBC) [Ratio] 14.7 % 12.0-14.8 [facility] Erythrocyte sedimentation ra te by Photometric methodOrdered By: Ab Blood 02-15-2023 ESR Photometric method (Bld) [Velocity] 54 mm/hr 0-14 [facility] Globulin Calc (S) [Mass/Vol] Ordered By: Ab Blood 02-15-2023 Globulin (S) [Mass/Vol] 3.3 g/dL F [facility] Glucose [Mass/volume] in Ser um or PlasmaOrdered By: Ab Blood on 02-15-2023 Glucose [Mass/Vol] 93 mg/dL 70-100 [facility] Comment on above: ADA recommended refe rence rangeRandom Glucose Reference Range is dependent on time and content of last meal. Glucose of more than 200 mg/dL in a nonstressed, ambulatory subject supports the diagnosis of Diabetes Mellitus. Hematocrit Auto (Bld) [Volum e fraction]Ordered By: Ab Blood on 02-15-2023 Hematocrit (Bld) [Volume fraction] 41.6 % 38.8-50.0 [facility] Hemoglobin [Mass/volume] in BloodOrdered By: Ab Blood on 02-15-2023 Hemoglobin (Bld) [Mass/Vol] 13.9 g/dL 13.0-17.0 [facility] Hepatitis B virus surface Ag [Presence] in Serum or Plasma by ImmunoassayOrdered By: Ab Blood on 02-15-2023 HBV surface Ag IA Ql Negative Negative [facility] Hepatitis C virus IgG Ab [Pr esence] in Serum or Plasma by ImmunoassayOrdered By: Ab Blood on 02-15-2023 HCV IgG IA Ql Non-Reactive Non Reactive [facility] Leukocytes [#/volume] correc michelle for nucleated erythrocytes in Blood by Automated counOrdered By: Ab Blood on 02-15-2023 WBC corrected for nucl RBC Auto (Bld) [#/Vol] 8.6 10*3/uL 4.1-10.5 [facility] Lymphocytes Auto (Bld) [#/Vo l]Ordered By: Ab Blood on 02-15-2023 Lymphocytes (Bld) [#/Vol] 2.3 10*3/uL 1.00-4.8 [facility] Lymphocytes/100 WBC Auto (Bl d)Ordered By: Ab Blood on 02-15-2023 Lymphocytes/100 WBC (Bld) 26.2 % . [facility] MCH Auto (RBC) [Entitic mass ]Ordered By: Ab Blood on 02-15-2023 MCH (RBC) [Entitic mass] 27.5 pg 27.5-35.2 [facility] MCHC Auto (RBC) [Mass/Vol]Or dered By: Ab Blood on 02-15-2023 MCHC (RBC) [Mass/Vol] 33.4 g/dL 32.5-35.6 [facility] MCV Auto (RBC) [Entitic vol] Ordered By: Ab Blood on 02-15-2023 MCV (RBC) [Entitic vol] 82.3 fL 83.5-101 F [facility] Monocytes Auto (Bld) [#/Vol] Ordered By: Ab Blood on 02-15-2023 Monocytes (Bld) [#/Vol] 0.5 10*3/uL 0.0-0.8 [facility] Monocytes/100 WBC Auto (Bld) Ordered By: Ab Blood on 02-15-2023 Monocytes/100 WBC (Bld) 6.2 % . F [facility] Neutrophils Auto (Bld) [#/Vo l]Ordered By: Ab Blood on 02-15-2023 Neutrophils (Bld) [#/Vol] 5.5 10*3/uL 1.8-7.7 [facility] Neutrophils/100 WBC Auto (Bl d)Ordered By: Ab Blood on 02-15-2023 Neutrophils/100 WBC (Bld) 64.5 % . [facility] No Panel InformationOrdered By: Ab Blood on 02-15-2023 Estimated GFR (CKD-EPI) > 60.0 mL/Min [facility] Hepatitis B Core Total Antibody Negative Negative [facility] Comment on above: Performed at: [address] Director: Ham Madrigal PhD, Phone: [phone] Hepatitis C Interpretation See comment . [facility] Comment on above: Not infected with HC V unless early or acute infection issuspected (which may be delayed in an immunocompromisedindividual), or other evidence exists to indicate HCVinfection. Hepatitis C RNA Quantitative N/A [facility] Creatinine Clearance (Chem N/A [facility] Nucleated erythrocytes [Pres ence] in Blood by Automated countOrdered By: Ab Blood on 02-15-2023 Nucleated RBC Auto Ql (Bld) 0.2 /100{WBC} 0-0.5 [facility] Platelet mean volume Auto (B ld) [Entitic vol]Ordered By: Ab Blood on 02-15-2023 Platelet mean volume (Bld) [Entitic vol] 7.7 fL 6.6-10.1 [facility] Platelets Auto (Bld) [#/Vol] Ordered By: Ab Blood on 02-15-2023 Platelets (Bld) [#/Vol] 360 10*3/uL 150-450 [facility] Potassium [Moles/volume] in Serum or PlasmaOrdered By: Ab Blood on 02-15-2023 Potassium [Moles/Vol] 4.2 mmol/L 3.5-5.1 [facility] Protein [Mass/volume] in Ser um or PlasmaOrdered By: Ab Blood on 02-15-2023 Protein [Mass/Vol] 7.7 g/dL 6.4-8.9 [facility] RBC Auto (Bld) [#/Vol]Ordere d By: Ab Blood on 02-15-2023 RBC (Bld) [#/Vol] 5.06 10*6/uL 3.90-5.60 [facility] Serum hepatitis B virus surf tammy antibody detectionOrdered By: Ab Blood on 02-15-2023 HBV surface Ab Ql (S) Reactive . [facility] Comment on above: Non Reactive: Incons istent with immunity, less than 10 mIU/mL Reactive: Consistent with immunity, greater than 9.9 mIU/mL Serum homogeneous pattern an tinuclear antibody (DOV) titerOrdered By: Ab Blood on 02-15-2023 Homogenous nuclear Ab pattern (S) [Titer] N/A [facility] Serum nuclear antibody titer Ordered By: Ab Blood on 02-15-2023 Nuclear Ab (S) [Titer] Negative . [facility] Comment on above: Negative <1:80 Borde rline 1:80 Positive >1:80ICAP nomenclature: AC-0For more information about Hep-2 cell patterns useANApatterns.org, the official website for theInternational Consensus on Antinuclear Antibody (DOV)Patterns (ICAP).Performed at: [facility] [address] [id number] Director: Ham Madrigal PhD, Phone: [phone] Serum or plasma albumin/glob ulin mass ratioOrdered By: Ab Blood on 02-15-2023 Albumin/Globulin [Mass ratio] 1.3 {ratio} [facility] Serum or plasma anion gap de terminationOrdered By: Ab Blood on 02-15-2023 Anion gap [Moles/Vol] 12.1 mmol/L 6.0-15.0 [facility] Sodium [Moles/volume] in Ser um or PlasmaOrdered By: Ab Blood on 02-15-2023 Sodium [Moles/Vol] 138 mmol/L 136-145 [facility] Urea nitrogen [Mass/volume] in Serum or PlasmaOrdered By: Ab Blood on 02-15-2023 Urea nitrogen [Mass/Vol] 16 mg/dL 7-25 [facility] WBC Auto (Bld) [#/Vol]Ordere d By: Ab Blood on 02-15-2023 WBC (Bld) [#/Vol] 8.6 10*3/uL 4.1-10.5 [facility] POINT OF CARE GLUCOSEon 04-03 Glucose [Mass/Vol] 108 mg/dL Critically high 74-106 [facility] Comment on above: Performed By: #### P OCGLUC #### [facility] [address] [address] [address] Lori Mccollum Glucose [Mass/Vol] 113 mg/dL Critically high 74-106 [facility] Comment on above: Performed By: #### P OCGLUC #### [facility] [address] [address] [address] Lori Mccollum [facility]03 SARS-CoV-2 (COVID-19) RNA LOC+probe Ql (Unsp spec) Not detected Normal NOT DETECTED [facility] Comment on above: Result Comment: This test is not yet approved or cleared by the [place] FDA. When there are no FDA-approved or cleared tests available, and other criteria are met, FDA can make tests available under an emergency access mechanism called an Emergency Use Authorization (EUA). The EUA for this test is supported by the [employer] of Health and Human Service's (HHS's) declaration that circumstances exist to justify the emergency use of in vitro diagnostics for the detection and/or diagnosis of the virus that causes COVID-19. This EUA will remain in effect (meaning this test can be used) for the duration of the COVID-19 declaration justifying emergency of IVDs, unless it is terminated or revoked by FDA (after which the test may no longer be used). When diagnostic testing is negative, the possibility of a false negative should be considered in the context of a patient's recent exposures and the presence of clinical signs and symptoms consistent with SARS-CoV-2. Performed By: #### C [facility] #### [facility] [address] [place] [address] FOOT RT WO CONon 03-21-20 CT FOOT RT WO CON EXAMINATION: CT FOOT RT WO CON HISTORY: Idiopathic osteoarthritis ; acute right second bunion COMPARISON: No relevant comparison available. TECHNIQUE: Multi-planar CT images were created without IV contrast. Dose reduction techniques were achieved by using automated exposure control and/or adjustment of mA and/or kV according to patient size and/or use of iterative reconstruction technique. FINDINGS: BONES: Lytic/erosive lesions within the heads of the first through fifth metatarsals and within the base of the second proximal phalanx. Moderate joint space narrowing of the first and second tarsal-metatarsal joints. Lateral deviation of the toes with lateral subluxation of the first proximal phalanx and bunion formation. SOFT TISSUES: Negative. No visible soft tissue swelling. EFFUSION: None visible. OTHER: Negative. IMPRESSION: 1. Multifocal lytic/erosive changes involving the tarsal-metatarsal joints of all 5 digits suggestive of inflammatory arthritis such as rheumatoid arthritis. 2. Narrowing of the first and second tarsal-metatarsal joint spaces and mild lateral subluxation of the first metatarsophalangeal joint favoring bunion formation. Electronically authenticated by: PRANAV MORTENSEN Date: 2022-03-21 09:06 Normal [facility] XR FOOT NEL MIN 3 VIEWSon XR FOOT NEL MIN 3 VIEWS EXAMINATION: XR FOOT NEL MIN 3 VIEWS HISTORY: Pain in both feet COMPARISON: No relevant comparison available. FINDINGS: RIGHT FINDINGS: BONES: Bunion formation and lateral deviation of the toes. Degenerative changes in subchondral cysts involving the second metatarsophalangeal joint. Multiple small cystic areas or erosive lesions within the heads of the second through fifth metatarsals. Calcaneal plantar spur. Mild flattening of plantar arch. SOFT TISSUES: No visible soft tissue swelling. OTHER: Negative. LEFT FINDINGS: BONES: Mild flattening of plantar arch. Calcaneal plantar spur. SOFT TISSUES: No visible soft tissue swelling. OTHER: Negative. IMPRESSION: RIGHT CONCLUSION: 1. Mild bunion formation. 2. Erosive changes within head of the second through fifth metatarsals suggestive of inflammatory arthritis, possible rheumatoid. Moderate degenerative joint disease of the second metatarsophalangeal joint. 3. Mild pes planus and calcaneal plantar spur. LEFT CONCLUSION: 1. Mild pes planus and calcaneal plantar spur. Electronically authenticated by: PRANAV MORTENSEN Date: 2022-03-16 15:24 Normal [facility] Vital Signs Date Time Vital Sign Value Performing Clinician Facility 03-10-2023 08:10-0400 Body height 191.77 cm Dinora Meng Other [facility] Other 01-04-2023 15:40-0400 Body height 191.77 cm Dinora Meng Other [facility] Other 03-31-2022 09:30-0400 Body height 191.77 cm Dinora Rosen Other [facility] Other 03-31-2022 09:30-0400 Body mass index (BMI) [Ratio] 33.42 kg/m2 Dinora Rosen Other [facility] Other 03-31-2022 09:30-0400 Body temperature 98.4 [degF] Dinora Rosen Other [facility] Other 03-31-2022 09:30-0400 Body weight 122.93 kg Dinora Rosen Other [facility] Other 03-31-2022 09:30-0400 Diastolic blood pressure 88 mm[Hg] Dinora Rosen Other [facility] Other 03-31-2022 09:30-0400 SaO2% (BldA) [Mass fraction] 96 % Dinora Rosen Other [facility] Other 03-31-2022 09:30-0400 Systolic blood pressure 135 mm[Hg] Dinora Rosen Other [facility] Other 05-12-2021 16:40-0500 Body height 191.77 cm Dinora Meng Other [facility] Other 05-12-2021 16:40-0500 Body mass index (BMI) [Ratio] 33.42 kg/m2 Dinora Meng Other [facility] Other 05-12-2021 16:40-0500 Body temperature 97.6 [degF] Dinora Meng Other [facility] Other 05-12-2021 16:40-0500 Body weight 122.93 kg Dinora Meng Other [facility] Other 05-12-2021 16:40-0500 Diastolic blood pressure 82 mm[Hg] Dinora Meng Other [facility] Other 05-12-2021 16:40-0500 Respiratory rate 18 /min Dinora Meng Other [facility] Other 05-12-2021 16:40-0500 SaO2% (BldA) [Mass fraction] 97 % Dinora Meng Other [facility] Other 05-12-2021 16:40-0500 Systolic blood pressure 130 mm[Hg] Dinora Meng Other [facility] Other 09-23-2021 10:50-0400 Body height 191.77 cm Dinora Meng Other [facility] Other 03-25-2021 10:50-0400 Body mass index (BMI) [Ratio] 32.62 kg/m2 Dinora Meng Other [facility] Other 03-25-2021 10:50-0400 Body temperature 97.1 [degF] Dinora Johnienatanael Other [facility] Other 03-25-2021 10:50-0400 Body weight 119.98 kg Dinora Meng Other [facility] Other 03-25-2021 10:50-0400 Diastolic blood pressure 106 mm[Hg] Dinora Jettnatanael Other [facility] Other 03-25-2021 10:50-0400 Respiratory rate 18 /min Dinora Meng Other [facility] Other 03-25-2021 10:50-0400 SaO2% (BldA) [Mass fraction] 99 % Dinora Meng Other [facility] Other 03-25-2021 10:50-0400 Systolic blood pressure 144 mm[Hg] Dinora Meng Other [facility] Other Encounters Encounter Date Encounter Type Care Provider Facility Start: 03-06-2024 End: 03-06-2024 Patient encounter procedure DO Dinora Meng Work Phone: [facility] [address] Work Phone: Start: 03-06-2024 End: 03-06-2024 ambulatory DO Farias Johnienatanael Work Phone: [facility] Work Phone: Start: 11-01-2023 End: 11-01-2023 ambulatory Ab Blood Facility:[facility] Start: 08-24-2023 End: 08-24-2023 Patient encounter procedure DO Dinora Meng Work Phone: [facility] [address] Work Phone: Start: 08-24-2023 End: 08-24-2023 ambulatory DO Dinora Meng Work Phone: [facility] Work Phone: Start: 08-24-2023 End: 08-24-2023 Patient encounter procedure DO Dinora Meng Work Phone: [facility] [address] Work Phone: Start: 08-24-2023 End: 08-24-2023 ambulatory DO Dinora Meng Work Phone: [facility] Work Phone: Start: 08-17-2023 Non-patient / Non-visit DO Doug Meng Work Phone: [facility] Work Phone: Start: 08-09-2023 Telephone encounter Dinora PRAKASH Development [employer] Start: 08-09-2023 End: 08-09-2023 Patient encounter procedure DO Dinora Meng Work Phone: [facility] Start: 08-09-2023 End: 08-09-2023 ambulatory DO Dinora Meng Work Phone: [facility] Work Phone: Start: 08-07-2023 End: 08-07-2023 ambulatory Dinora Meng Other [facility] [employer] Other Start: 08-07-2023 Telephone encounter Dinora PRAKASH [facility] [place] Start: 07-05-2023 End: 07-05-2023 Patient encounter procedure DO Dinora Meng Work Phone: [facility] [address] Work Phone: Start: 07-05-2023 End: 07-05-2023 ambulatory DO Dinora Jettnatanael Work Phone: [facility] Work Phone: Start: 06-21-2023 End: 06-21-2023 amb[address]eria Other [facility] [employer] Other Start: 06-21-2023 Office outpatient vi sit 15 minutes Dinora Meng [facility] [place] Start: 06-21-2023 End: 06-21-2023 Patient encounter procedure DO Dinora Meng Work Phone: [facility] Work Phone: Start: 06-01-2023 End: 06-01-2023 Patient encounter procedure DO Dinora Meng Work Phone: [facility] [address] Work Phone: Start: 06-01-2023 End: 06-01-2023 ambulatory DO Dinora Jettnatanael Work Phone: [facility] Work Phone: Start: 03-22-2023 End: 03-22-2023 Patient encounter procedure DO Dinora Jettnatanael Work Phone: [facility] [address] Work Phone: Start: 03-22-2023 End: 03-22-2023 ambulatory DO Dionra Meng Work Phone: [facility] Work Phone: Start: 03-22-2023 End: 03-22-2023 Patient encounter procedure DO Dinora Meng Work Phone: [facility] [address] Work Phone: Start: 03-22-2023 End: 03-22-2023 ambulatory DO Dinora Meng Work Phone: [facility] Work Phone: Start: 03-13-2023 End: 03-13-2023 ambulatory Dinora Meng Other [facility] Other Start: 03-13-2023 Encounter for genera l adult medical examination without abnormal findings Dinora Meng [facility] [place] Start: 03-13-2023 Telephone encounter Dinora Meng [facility] [place] Start: 03-10-2023 End: 03-10-2023 ambulatory Dinora Meng Other [facility] Other Start: 03-10-2023 Office outpatient vi sit 10 minutes Dinora Meng [facility] [place] Start: 02-15-2023 End: 02-15-2023 ambulatory DO Dinora Meng Work Phone: [facility] Work Phone: Start: 02-15-2023 End: 02-15-2023 Patient encounter procedure DO Dinora Meng Work Phone: [facility] [address] Work Phone: Start: 02-13-2023 End: 02-13-2023 ambulatory Dinora Meng Other [facility] Other Start: 02-13-2023 Telephone encounter Dinora Meng [facility] [place] Start: 02-02-2023 End: 02-02-2023 ambulatory Dinora Meng Other [facility] Other Start: 02-02-2023 Telephone encounter Dinora Meng [facility] [place] Start: 01-31-2023 End: 01-31-2023 ambulatory Dinora Meng Other [facility] Other Start: 01-31-2023 Telephone encounter Dinora Meng [facility] [place] Start: 01-04-2023 End: 01-04-2023 ambulatory Dinora Meng Other [facility] Other Start: 01-04-2023 Telephone encounter Dinora Meng [facility] Start: 12-30-2022 End: 12-30-2022 ambulatory Dinora Meng Other [facility] Other Start: 12-30-2022 Telephone encounter Dinora Meng [facility] Start: 12-05-2022 End: 12-05-2022 ambulatory Dinora Meng Other [facility] Other Start: 12-05-2022 Telephone encounter Dinora Meng [facility] Start: 11-10-2022 End: 11-11-[address] PRANAV MORTENSEN Facility:[facility] Start: 07-19-[address] DINORA MENG Facilit y:[facility] Start: 06-07-2022 End: 06-08-[address] DINORA DUQUE Facility:[facility] Start: 05-17-2022 End: 05-18-[address] DINORA DUQUE Facility:[facility] Start: 04-25-2022 End: 04-25-[address] DINORA DUQUE Facility:[facility] Start: 04-24-2022 Encounter for preprocedural laboratory examination DARBY Chavez [facility] Start: 04-21-2022 End: 04-22-2022 ambulatory DARBY PETERSEN Facility:[facility] Start: 04-21-2022 End: 04-22-2022 Encounter for preprocedural laboratory examination DARBY PETERSEN Facility:[facility] Start: 04-15-2022 Encounter for preprocedural cardiovascular examination DARBY Chavez [facility] Start: 04-13-2022 End: 04-14-2022 ambulatory DARBY PETERSEN Facility:[facility] Start: 04-13-2022 End: 04-14-2022 Encounter for preprocedural cardiovascular examination DARBY PETERSEN Facility:[facility] Start: 03-31-2022 Office outpatient vi sit 15 minutes Dinora Rosen [facility] Start: 03-31-2022 End: 03-31-2022 ambulatory DO Dinora Meng Work Phone: [facility] Other Start: 03-31-2022 End: 03-31-2022 Patient encounter procedure DO Dinora Meng Work Phone: [facility] Start: 03-21-2022 End: 03-22-[address] PRANAV MORTENSEN Facility:[facility] Start: 03-16-2022 End: 03-17-[address] PRANAV MORTENSEN Facility:[facility] Start: 01-05-2022 End: 01-05-2022 ambulatory Dinora Meng Other [facility] Other Start: 01-05-2022 Telephone encounter Dinora Meng [facility] [place] Start: 09-02-2021 End: 09-02-2021 ambulatory Dinora Meng Other [facility] Other Start: 09-02-2021 Telephone encounter Dinora Meng [facility] [place] Start: 05-19-2021 End: 05-19-2021 ambulatory Dinora Meng Other [facility] Other Start: 05-19-2021 Telephone encounter Dinora Meng [facility] [place] Start: 05-12-2021 End: 05-12-2021 ambulatory Dinora Meng Other [facility] Other Start: 05-12-2021 Office outpatient vi sit 15 minutes Dinora Meng [facility] [place] Start: 03-25-2021 Office outpatient vi sit 25 minutes Dinora Meng [facility] [place] Start: 03-25-2021 Telephone encounter Dinora Meng [facility] [place] Procedures Date Procedure Procedure Detail Performing Clinician Start: 08-24-2023 MRI of right knee DO Glen Meng Work Phone: Start: 08-09-2023 X-ray of right knee DO Dinora Meng Work Phone: Start: 03-22-2023 Plain chest X-ray DO Glen Meng Work Phone: Start: 03-22-2023 Plain X-ray of bilat eral hands DO Dinora Meng Work Phone: Start: 03-22-2023 X-ray of both feet DO Kathy Meng Work Phone: Plan of Treatment Date Care Activity Detail Author Start: 02-15-2023 Hepatitis B core ant ibody measurement [facility] Start: 02-15-2023 [facility] Immunizations Immunization Date Immunization Notes Care Provider Fa lianety 10-01-2020 COVID-19 Vaccine Marianne - Documentation Purposes Only Dinora Meng Other [facility] NEGATED: Highlighted row has not occurred!06-08-2021 influenza, seasonal, injectable Patient Objection Dinora Meng Other [facility] Other Payers Date Payer Category Payer Self-pay [id number] 2023 Unknown [id number] 2022 Unknown [id number] 1978 Unknown [id number] 1978 Unknown [id number] 1978 Unknown [id number] .[id number] 1978 Unknown [id number] 2.840.1.802067.3.579.2 1978 Unknown [id number] 2.840.1.100231.3.579.2 1978 Unknown [id number]. 1978 Unknown [id number] 1978 Unknown [id number] 2.16.840.1.867783.3.579.2.593 1978 Unknown [id number] 2.16.840.1.372959.3.579.2.593 1961 [facility] [id number] Private Health Insurance [employer] [id number] Unknown [id number] [id number]1 Unknown [id number] 2.16.840.1.786060.3.579.2.531 Unknown [id number] 2.16.840.1.596350.3.579.2.531 Unknown [id number] 2.16.840.1.936126.3.579.2.531 Unknown [id number] 2.16.840.1.589922.3.579.2.531 Unknown [id number] 2.16.840.1.968982.3.579.2.531 Unknown [id number] 2.16.840.1.822178.3.579.2.531 Unknown [id number] 2.16.840.1.679427.3.579.2.531 Unknown [id number] 2.16.840.1.321749.3.579.2.531 Social History Date Type Detail Facility Unknown if ever smoked [facility] Other Sex Assigned At Sex Assigned At Bir th [facility] Other Start: 1980 Sex Assigned At Male F [facility] Start: 07-31-2018 End: 07-31-2018 Tobacco smoking status COIS Ex-smoker (finding) [facility] Clinical Notes 04-02-2015 to 06-21-2023 Note Date & Type Note Facility 06-21-2023 Evaluation note Encounter Date Diagnosis Assessment Notes Jun, Anxiety (ICD-10 - F41.9) He voices that the Effexor is not working the way he would like. He is more irritable and quick to get angry. He has tried Celexa, Zoloft in the past. He has never had a seizure. He is not the only person who has noticed his mood, his has also noticed this as well. He can feel it coming on to a certain degree but then other times he can become angry within seconds. He saw a psychiatrist in the past (Zee Pascual) who had him on Lamictal in the past but was only diagnosed with anxiety. She moved away so he did not continue to follow with her. He did not feel that the Lamictal made him feel significantly better, he felt that he was at a plateau with the medication. When he feels he is angry or going to become angry he will walk away or go downstairs. If he drinks alcohol it is in one setting, he does not drink during the week. He may drink a significant amount during that one setting and that can sometimes lead to disagreements. I did recommend that he see a different psychiatrist for evaluation. He would like to see Meagan Blackwell but states that he needs a referral. One is provided. I did advise him that he will need to wean off the Effexor slowly if he wants to come off of this medication. We discussed him having Ativan available incase needed and having him continue with the Effexor until he is seen by Meagan Blackwell. He would not be able to take the Ativan any night he drinks alcohol and he cannot drive after taking. He does not want to take Ativan. I will have him decrease his Effexor to 75 MG and start Wellbutrin. He can take the Effexor 75 MG for 7-10 days and then can wean down to Effexor 37.5 MG. He would like both medications sent in for him. I will send in the Wellbutrin XL 150 MG and he can start on these when he is down to the Effexor XR 75 MG and then increase to the 300 MG when he is done with the Effexor. Jun, Depression (ICD-10 - F32.9) Jun, Other 9:02 AM - 9:23 AM [facility] Other 09-11-2023 Evaluation note* Encounter Date Diagnosis Assessment Notes Treatment Notes Treatment Clinical Notes Mar, Weight gain (ICD-10 - R63.5) Mar, Nocturia (ICD-10 - R35.1) Mar, Hyperglycemia (ICD-1 0 - R73.9) Mar, Iron deficiency anemia (ICD-10 - D50.9) Mar, Wellness examination (ICD-10 - Z00.00) [facility] Other 09-08-2023 Evaluation note* Encounter Date Diagnosis Assessment Notes Treatment Notes Treatment Clinical Notes Mar, Anxiety (ICD-10 - F41.9) He is doing well on the increased dose of Effexor. He does not feel that the dose needs to be raised any higher at this point. He will keep me posted with how he is doing and if he needs to change his dose. Mar, Rheumatoid arthritis (ICD-10 - M06.9) He did meet with Dr. Blood since last seen and he was placed on above medication. He was told that he would likely need a biologic medication but he is getting relief from the medication that he is on now. He will return to see Dr. Blood in two weeks. He voices that Dr. Blood ordered lab work for him to have done. Mar, Other alf (current) drug therapy (ICD-10 - Z79.899) I will see what Dr. Blood ordered, based on this we will determine what if anything else he needs to have drawn and provide him with an order. Mar, Other 8:27 AM - 8:32 AM [facility] Other 08-14-2023 Evaluation note* Encounter Date Diagnosis Assessment Notes Treatment Notes Treatment Clinical Notes Jan, Anxiety (ICD-10 - F41.9) Jan, Rheumatoid arthritis (ICD-10 - M06.9) [facility] Other 07-05-2023 Evaluation note* Encounter Date Diagnosis Assessment Notes Treatment Notes Treatment Clinical Notes Dec, Anxiety (ICD-10 - F41.9) He voices that he did not feel the Lamotrigine was helping him so he weaned himself off of this a couple of months ago. He was following with a specialist at [facility] and that specialist left [facility] so he would need to find a new psychiatrist. He has tried Zoloft, Effexor and Celexa in the past. He voices that he is on the fence whether any of these helped him. He says that right now there is a lot of irritability in the household, and he is quick to snap. He would like to take something to suppress this. He is not irritable at work, he is only irritable with his children and his spouse. For whatever reason at home he is irritable. He was never told that he was bipolar. He would like to take Effexor again and see how he does on the medication. Guidance is given on how to take the medication. He cannot suddenly stop the medication. I will start him on 10 days of the low dose (37.5 MG) and as long as he is doing well he can then increase to 75 MG daily. He may notice upset stomach when he first starts this but this should improve the longer he is on the medication. When he runs low on the 75 MG dose he is to call with progress and let me know if he feels the dose needs to be increased again. Dec, GERD (gastroesophageal reflux disease) (ICD-10 - K21.9) He voices that he is still taking above medication daily. Dec, Hypertension (ICD-10 - I10) He voices that he is still taking above medication daily. Dec, Other 3:55 PM - 4:06 PM [facility] Other 05-12-2023 NotePROCEDURE: XR FOOT RT MIN 3 VIEWS HISTORY: Pain in right foot COMPARISON: XR foot right 06/07/2022 FINDINGS: BONES:First metatarsophalangeal joint dorsal plate fusion with fracture of the plate through the third screw hole from the proximal end overlying the metatarsal head 2 screws within the head of the second and third metatarsal respectively. Prior resection of the heads of the second and third proximal phalanx. Overlapping fourth and fifth toe. Calcaneal plantar spur. SOFT TISSUES:No visible soft tissue swelling. EFFUSION:None visible. OTHER: Negative. IMPRESSION: 1. Interval fracture of the dorsal plate fusing the first metatarsophalangeal joint. 2. No acute bone abnormality. Electronically authenticated by: PRANAV MORTENSEN Date: 2022-11-11 06:27[facility]12-06-2022 NotePROCEDURE: XR FOOT RT MIN 3 VIEWS COMPARISON: 05/17/2022 HISTORY: Pain in right foot FINDINGS: BONES:Stable medial dorsal fusion of the first tarsometatarsal joint with a plate and screws. Osteotomy and screw placement second and third metatarsal heads. Resection head of the second and third proximal phalanges. Degenerative changes most significant at the second metatarsal phalangeal joint SOFT TISSUES:Medial soft tissue swelling. Interval removal of surgical skin joanna EFFUSION:None visible. OTHER: Negative. IMPRESSION: Stable postsurgical and degenerative changes Electronically authenticated by: DINORA DUQUE Date: 2022-06-07 09:56[facility]11-15-2022 NotePROCEDURE: XR FOOT RT MIN 3 VIEWS COMPARISON: 04/25/2022 HISTORY: Pain in right foot FINDINGS: BONES:Stable fusion the first metatarsal-phalangeal joint with no mechanical failure. Osteotomy and screw placement at the second and third metatarsals. Resection head of the second and third proximal phalanges. Severe degenerative changes of the second metatarsal phalangeal joint. Lytic changes head of the fifth metatarsal SOFT TISSUES:Dorsal medial forefoot surgical joanna EFFUSION:None visible. OTHER: Negative. IMPRESSION: Stable postsurgical changes Electronically authenticated by: DINORA DUQUE Date: 2022-05-17 10:44[facility]10-24-2022 NotePROCEDURE: XR FOOT RT 2V HISTORY: Pain COMPARISON: XR foot bilateral 03/16/2022 FINDINGS: BONES:Multiple intraoperative spot fluoroscopic images demonstrate mechanical fusion of the first metatarsophalangeal joint. Osteotomy and repair of the head of the second and third metatarsals. Resection of the distal articular surface of the second and third proximal phalanx. SOFT TISSUES:Expected intraoperative findings. EFFUSION:None visible. OTHER: Negative. IMPRESSION: Surgical changes as detailed above. Electronically authenticated by: PRANAV MORTENSEN Date: 2022-04-25 19:46[facility]10-24-2022 NotePROCEDURE: XR FOOT RT MIN 3 VIEWS COMPARISON: 03/16/2022 HISTORY: Pain FINDINGS: BONES:Correction of hallux valgus with fusion first metatarsal-phalangeal joint fusion plate and multiple screws. Osteotomy and screw placement across the head of the second and third metatarsals. Resection head of the second proximal phalanx SOFT TISSUES:Postprocedural soft tissue swelling surgical skin joanna and subcutaneous air EFFUSION:None visible. OTHER: Posterior splint IMPRESSION: Postsurgical changes Electronically authenticated by: DINORA DUQUE Date: 2022-04-25 10:53[facility]09-29-2022 Evaluation note* Encounter Date Diagnosis Assessment Notes Treatment Notes Treatment Clinical Notes Mar, Obstructive sleep apnea (ICD-10 - G47.33) Fortunately the patient is using and benefiting from treatment. He could benefit from increased utilization times, and he is encouraged to use the machine every night, all night. He will call if any problems overall feels this treatment is effective for him and he has no problems with use Mar, Other Call if any questions or problems. Patient is advised to work on healthy diet choices and appropriate servings, weight control, regular exercise as directed, and reduce fat intake. Use machine regularly, and keep up with mask changes as needed. Call if problems with mask toleration, increased sleepiness, or poor response to treatment. . [facility] Other 03-03-2022 Evaluation note* Encounter Date Diagnosis Assessment Notes Treatment Notes Treatment Clinical Notes Aug, GERD (gastroesophageal reflux disease) (ICD-10 - K21.9) [facility] Other 11-17-2021 Evaluation note* Encounter Date Diagnosis Assessment Notes Treatment Notes Treatment Clinical Notes May, Numbness and tingling in left hand (ICD-10 - R20.2) [facility] Other 11-10-2021 Evaluation note* Encounter Date Diagnosis Assessment Notes Treatment Notes Treatment Clinical Notes May, Numbness and tingling in left hand (ICD-10 - R20.2) He voices that this has worsened since starting after a long car drive in December (2020). When he drives his elbow sits and rests on a certain spot in the car. Sitting in the office he complains of tingling in his hands. I suspect his ulnar nerve is involved, something is compressing the ulnar nerve. We discussed the dermatome and where it can travel to and from. I did recommend that he have an EMG done to rule out abnormalities. He needs to avoid letting his arm rest on anything. Make his desk ergonomically correct. If he has to lay on his side he should lay on stacked pillows to prevent the nerve from being compressed, this will also help the nerve to heal. May, Cervical pain (ICD-10 - M54.2) Will order a cervical spine x-ray to rule out abnormalities. 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 He voices that he is tolerating the medication well. [facility] Other 09-23-2021 Evaluation note* Encounter Date Diagnosis Assessment Notes Treatment Notes Treatment Clinical Notes Mar, Elevated blood pressure (ICD-10 - R03.0) [facility] Other 09-23-2021 Evaluation note* Encounter Date Diagnosis Assessment Notes Treatment Notes Treatment Clinical Notes Mar, GERD (gastroesophageal reflux disease) (ICD-10 - K21.9) He voices that he does continue to use and benefit from the Pantoprazole and would like to continue with this. Mar, Elevated blood pressure (ICD-10 - R03.0) His blood pressure is elevated today at 144/106. He admits that at various doctor appointments recently his readings have been around the same as today's reading. I do recommend treatment and he agrees. Guidance is given on how to take the medication. Two weeks after he starts the medication he should have lab drawn to be sure medication is not affecting his potassium. He can call for the results. I will start him on a low dose and explained that we can increase the dose if needed. I did recommend that he begin checking his blood pressure on his own and track readings. When he calls for his lab results he should provide his blood pressure readings. Mar, Rheumatoid arthritis (ICD-10 - M06.9) He has an appointment to see Dr. Joyce today. Mar, Anxiety (ICD-10 - F41.9) He voices that he follows with Dr. Basilio through [facility] and she has him on above medication once a day. He voices that she treats him for anxiety. Mar, Poison faviola dermatitis (ICD-10 - L23.7) He voices that this past weekend he got into poison faviola but it is starting to dry up today and it does not itch. He is comfortable continuing to monitor. Mar, Varicose vein of leg (ICD-10 - I83.90) He did see Dr. Pearson for evaluation and a procedure was recommended and discussed. He anticipates that he will be having the procedure done as soon as it is able to be scheduled. Mar, Other He voices that he uses a CPAP machine and when he woke up today his left jaw was tender, he describes it as feeling as if he has dry socket. If he touches the side of his face it is sensitive. His gum is sore inside on the left. I did recommend that he contact his dentist to discuss. I will provide him with a handwritten prescription for an antibiotic if symptoms persist into tomorrow. Guidance is given on how to take the medication. [facility] Other 10-01-2015 History general Narrative - Reported* Type Description Date Medical History Irritability (per rossana sandhu, this is what the celexa is for) Medical History Obstructive sleep apnea (adult) (pediatric) Surgical History vasectomy 04/2015 Surgical History ear tubes as a child Surgical History reconstruction of sullivan mmer bone in rt ear - in 5th grade Surgical History Brights disease (kidneys) Hospitalization History see above [facility] Other 10-01-2015 History general Narrative - Reported* Type Description Date Medical History Obstructive sleep apnea (adult) (pediatric) Medical History anxiety Medical History hypertension Surgical History vasectomy 04/2015 Surgical History ear tubes as a child Surgical History reconstruction of sullivan mmer bone in rt ear - in 5th grade Surgical History Brights disease (kidneys) Hospitalization History see above [facility] Other 10-01-2015 History general Narrative - Reported* Type Description Date Medical History Obstructive sleep apnea (adult) (pediatric) Medical History anxiety Medical History hypertension Medical History RA Surgical History vasectomy 04/2015 Surgical History ear tubes as a child Surgical History reconstruction of sullivan mmer bone in rt ear - in 5th grade Surgical History Brights disease (kidneys) Hospitalization History see above [facility] Other [facility]No [facility] Other Evaluation noteNo assessment information available [facility] Work Phone: Reason for visit Narrativerefill/increase med/referral [facility] Other Chief Complaint and Reason for Visit Chief Complaint Sleep apnea annual f ollow up Chief Complaint M25.50/M06.4/Z79.899 /Z11.59 z00.00 r73.9 Chief Complaint z00.00 r73.9 RHEUMATOID ARTHRITIS IMMUNOSUPPRESION BILAT HAND Chief Complaint M05.79 Z79.899 Chief Complaint M05.79 Z79.899 Discuss Alternatives To Effexor M05.79 Z79.899 Chief Complaint M05.79 Z79.899 Discuss Alternatives To Effexor M05.79 Z79.899 M25.561 Amb Documentation M23.91 m05.79 z79.899 Advance Directives No Advanced Directives Records Found Advance Directive Response Recorded Date/ Time Advance Directives No July 10, 2018 9:32am Advance Directive Response Recorded Date/ Time Advance Directives No July 10, 2018 8:32am Summary Purpose Family History No Family History Records Found Relationship Condition Age at Onset Recorded Date/T dexter family member Multiple sclerosis Unknown family member History of malignant neoplasm of prostate Unknown Malignant neoplasm Unknown father Unknown Heart disease Unknown Hypertension Unknown grandparent Malignant neoplasm Unknown History of malignant neoplasm of prostate Unknown Not Specified Malignant neoplasm Unknown Relationship Condition Age at Onset Recorded Date/T dexter aunt Multiple sclerosis Unknown aunt History of malignant neoplasm of prostate Unknown Malignant neoplasm Unknown father Unknown Heart disease Unknown Hypertension Unknown grandparent Malignant neoplasm Unknown History of malignant neoplasm of prostate Unknown mother Malignant neoplasm Unknown Reason for Referral Reason appt Pt is naheed cox to see whomever can see him first consult for eval and treatment of rt knee pain x2 mos after hearing knee pop Diagnosis 1 Knee pain, right (M2 5.561) Referral Organization [facility] Referring Provider First Name Dinora Referring Provider Last Name Taqueria Referring Provider Specialty Family Prac sushila Referred Organization [facility] Referred Provider Anurag Abbott Referred Address [address],[place],[address] Referred Provider Specialty Orthopedic S urgery Referral Priority Routine General Notes Cici Joseph 08/07/2023 09:23:14 AM > referral sent p2p. pt was provided with the phone number to call if he does not hear from [facility]. Reason appt pt needs cons ult to discuss anxiety, depression Diagnosis 1 Anxiety (F41.9) Referral Organization [facility] perla Pickett Referring Provider First Name Dinora Referring Provider Last Name Taqueria Referring Provider Specialty Family Prac sushila Referred Organization [facility] Referred Provider Meagan Blackwell Referred Address [address],[place],[address] Referred Provider Specialty Nurse Todd patrick Referral Priority Routine General Notes Cici Joseph 06/21/2023 09:36:23 AM > referral faxed thru [facility] with visit note and insurance cards. Cici Joseph 06/21/2023 11:31:23 AM > referral hard faxed instead to [facility] at [phone]. referral closed as it is for psychiatry and will not be followed. Reason appt consult for e kylie and treatment of RA Diagnosis 1 Rheumatoid arthritis (M06.9) Referral Organization [facility] Family Michael Pickett Referring Provider First Name Dinora Referring Provider Last Name Taqueria Referring Provider Specialty [facility] Prac sushila Referred Organization [facility] Referred Provider Dennis Rothman Referred Address [address] [place] Referred Provider Specialty Rheumatology Referral Priority Routine General Notes Cici Joseph 02/13/2023 10:37:48 AM > referral faxed thru [facility] with TE message and visit note from 2020 (lab review) and insurance card. pt understands that he will be contacted to schedule this appt. Additional Source Comments REASON FOR VISIT (unrecogniz ed section and content) rxmed refillswollen lymph no de in armpitclinicalrefillrefillNo InformationClinicalmed questiondiscuss meds/irritabilityreferralClinicalClinicalmed refilldiscuss alternatives to EffexorORTHO CONSULTrt knee Care Teams (unrecognized sec tion and content) Team Status: Inactive Member Role Status Dates Dinora Girvin , DO Primary Care Provider Active Dinora Rosen MD Attending Provider Active Team Status: Active Member Role Status Marco A Meng DO Primary Care Provider Active Team Status: Inactive Member Role Status Marco A Meng DO Primary Care Provider Active Ab Blood MD Attending Provider Active Team Status: Inactive Member Role Status Marco A Meng DO Primary Care Provider, Attending Pro vider Active Team Status: Inactive Member Role Status Marco A Meng DO Primary Care Provider Active S tart: June 01, 2023 End: June 01, 2023 Ab Blood MD Attending Provider Active St art: June 01, 2023 End: June 01, 2023 Team Status: Inactive Member Role Status Marco A Meng DO Attending Provider Active Star t: June 21, 2023 End: June 21, 2023 Team Status: Inactive Member Role Status Marco A Meng DO Primary Care Provider Active S tart: July 05, 2023 End: July 05, 2023 Ab Blood MD Attending Provider Active St art: July 05, 2023 End: July 05, 2023 Team Status: Inactive Member Role Status Marco A Meng DO Primary Care Provider Active S tart: August 09, 2023 End: August 09, 2023 Michael Crocker , Attending Provider Active S tart: August 09, 2023 End: August 09, 2023 Team Status: Active Member Role Status Marco A Meng DO Primary Care Provider Active S tart: August 17, 2023 Betsy Brooks LPN Attending Provider Active St art: August 17, 2023 Team Status: Inactive Member Role Status Marco A Meng DO Primary Care Provider Active S tart: August 24, 2023 End: August 24, 2023 Michael Crocker , Attending Provider Active S tart: August 24, 2023 End: August 24, 2023 Team Status: Inactive Member Role Status Marco A Meng DO Primary Care Provider Active S tart: August 24, 2023 End: August 24, 2023 Ab Blood MD Attending Provider Active St art: August 24, 2023 End: August 24, 2023 Team Status: Inactive Member Role Status Marco A Meng DO Primary Care Provider Active S tart: March 06, 2024 End: March 06, 2024 Ab Blood MD Attending Provider Active St art: March 06, 2024 End: March 06, 2024 Goals (unrecognized section and content) Goals may be documented in a n alternate section (unrecognized sect ion and content) No Status Records FoundNo Status Records Found INFORMATION SOURCE (unrecogn ized section and content) DATE CREATED AUTHOR 11/14/2022 [facility] DATE CREATED AUTHOR AUTHOR'S ORGANIZ ATION 03/17/2024 [facility] FOR RECORDS PERTAINING TO PATIENTS WHO ARE OR HAVE BEEN ENROLLED IN A CHEMICAL DEPENDENCY/SUBSTANCEABUSE PROGRAM, SOME INFORMATION MAY BE OMITTED. This clinical summary was aggregated from multiple sources. Caution should be exercised in using it in the provision of clinical care. This summary normalizes information from multiple sources, and as a consequence, information in this document may materially change the coding, format and clinical context of patient data. In addition, data may be omitted in some cases. CLINICAL DECISIONS SHOULD BE BASED ON THE PRIMARY CLINICAL RECORDS. [facility] [employer] provides no warranty or guarantee of the accuracy or completeness of information in this document.
--- NOTE | 2024-03-31 19:20 | ED.WOUNDLAC1 ---
HPI - Wound/Laceration General Chief Complaint: Wound/Laceration Stated Complaint: Laceration Time Seen by Provider: 03/31/24 19:12 Source: patient Mode of arrival: walk-in Limitations: no limitations History of Present Illness HPI narrative: Patient is a 43-year-old male who presents to the ER for evaluation of laceration to the left hand. Patient was cleaning metal shingles without gloves when it lacerated his left hand. Most prominent laceration is at the palmar aspect of fifth MCP joint. Patient denies any numbness or tingling, bleeding controlled on arrival. He is unsure of his last tetanus. Patient appears in no distress. Is right-hand dominant Onset (ago): hour(s) Extremity Location: Left: hand Place: Reports home Patient tetanus UTD: No Context: Reports accidental Associated symptoms: Reports none Treatments prior to arrival: Reports bandage Related Data Home Medications ?Medication ?Instructions ?Recorded ?Confirmed bupropion HCl 300 mg 24 hr tablet, mg PO 03/31/24 extended release etanercept 50 mg/mL (1 mL) mg subcut 03/31/24 subcutaneous pen injector (Enbrel SureClick) folic acid 1 mg tablet 03/31/24 losartan 50 mg tablet mg 03/31/24 methotrexate sodium 2.5 mg tablet mg 03/31/24 pantoprazole 40 mg tablet,delayed mg PO 03/31/24 release Previous Rx's ?Medication ?Instructions ?Recorded cephalexin 500 mg capsule 500 mg PO TID 5 days #15 caps 03/31/24 Allergies Allergy/AdvReac Type Severity Reaction Status Date / Time No Known Drug Allergies Allergy Verified 03/31/24 19:18 Review of Systems ROS Constitutional Denies: fever or chills Ears, nose, mouth, and throat Denies: throat pain or neck pain Cardiovascular Denies: chest pain or palpitations Respiratory Denies: shortness of breath or cough Gastrointestinal Denies: abdominal pain or nausea Musculoskeletal Denies: back pain or neck pain Integumentary/Breast Denies: rash Neurological Denies: headache Psychiatric Denies: anxiety or mood swings Allergic/Immunologic Denies: hives PFSH PFSH Social History Little interest or pleasure in doing things: not at all Feeling down, depressed, or hopeless: not at all Exam Narrative Exam Narrative: Nurses notes and vital signs reviewed and patient is not hypoxic. General: The patient appears well and in no apparent distress. Patient is resting comfortably on cart. Skin: Warm, dry, no pallor noted. No evidence of rash. 1 cm linear superficial laceration palmar aspect fifth MCP joint. No active bleeding, abrasions noted across hand without full-thickness laceration. Head: Normocephalic, atraumatic Neck: Supple, trachea mid-line, no tenderness, no lymphadenopathy Eye: No conjunctival injection extraocular movements intact Ears, Nose, Mouth, and Throat: External exam unremarkable Cardiovascular: Regular Rate and Rhythm Respiratory: Patient is in no distress, no accessory muscle use, lungs are clear to auscultation, no wheezing, rales or rhonchi. Musculoskeletal: normal ROM, no tenderness, no swelling. No evidence of tendon injury. GI: Normal bowel sounds, no tenderness to palpation, no masses appreciated. No rebound, guarding, or rigidity noted. Neurological: A&O x4, No Paresthesias. Psychiatric: Cooperative Constitutional Vital Signs, click to edit/add: Last Vital Signs Temp 98.5 F 03/31/24 19:14 Pulse 83 03/31/24 19:14 Resp 14 03/31/24 19:14 BP 187/104 H 03/31/24 19:14 Pulse Ox 95 03/31/24 19:14 Course Vital Signs Vital signs: Vital Signs Temperature 98.5 F 03/31/24 19:14 Pulse Rate 83 03/31/24 19:14 Respiratory Rate 14 03/31/24 19:14 Blood Pressure 187/104 H 03/31/24 19:14 Pulse Oximetry 95 03/31/24 19:14 Temperature 98.5 F 03/31/24 19:14 Pulse Rate 83 03/31/24 19:14 Respiratory Rate 03/31/24 19:14 Blood Pressure 187/104 H 03/31/24 19:14 Pulse Oximetry 95 03/31/24 19:14 MDM - Wound/Laceration MDM Narrative Medical decision making narrative: Tetanus updated, wound cleansed, suture repair required, no evidence of flexor tendon involvement. Recommend ice and elevation. Discussed wound care. Given current medications immunocompromise status patient will be placed on Keflex for 5 days. He will contact his PCP for suture removal in 10 days. The patient is to followup with primary care physician in next 2-3 days BP Recheck. Suture removal in 10 days or to return to the emergency department should any of the signs or symptoms worsen or new symptoms develop. Patient had questions answered. The patient agrees with the following Diagnosis and Treatment plan and the patient will be discharged home. SUPERVISED APC VISIT, PHYSICIAN ATTESTATION: Based on the medical record the care appears appropriate. ? Discharge Plan Discharge Chief Complaint: Wound/Laceration Clinical Impression: Laceration of hand, left Patient Disposition: Home, Self-Care Time of Disposition Decision: 19:25 Condition: Good Prescriptions / Home Meds: New cephalexin 500 mg capsule 500 mg PO TID 5 Days Qty: 15 0RF No Action losartan 50 mg tablet methotrexate sodium 2.5 mg tablet pantoprazole 40 mg tablet,delayed release (DR/EC) PO folic acid 1 mg tablet bupropion HCl 300 mg tablet extended release 24 hr PO Enbrel SureClick 50 mg/mL (1 mL) pen injector SUBCUT Print Language: Ukrainian Instructions: Laceration (ED) Additional Instructions: Keep wound clean and dry, suture removal in 10 days. Given current medication Keflex sent to pharmacy, for prophylactic against infectious process. Have Blood pressure rechecked with PCP. Referrals: DINORA MENG [Primary Care Provider] - 1 week Discharge Date/Time: 03/31/24 20:01 Procedures ED Laceration Laceration Laceration 1: Site: hand (left) Additional comments: Laceration repair: Done under sterile conditions. The use of Betadine was used to prep and clean the area. Local injection with lidocaine 1% was used, approximately 2 cc. The wound was irrigated copiously with normal saline. The wound was explored there was no evidence of foreign material. The laceration was approximated with 5-0 nylon. 7 simple interrupted sutures were placed. Patient tolerated the procedure well. The patient was neurovascularly intact post. the patient had bacitracin applied to the laceration and a dry sterile dressing was place. The patient will need to follow-up in the next 10 days for removal.
[2024-03-31] MEDS: LIDOCAINE HCL 1% 100 MG/10 ML MDV INJ (19:30)
[2024-03-31] MEDS: ADACEL DIPH,PERTUSS(ACELL),TET VAC/PF 0.5 ML ADULT SYRINGE IM (19:53)
[2024-03-31] MEDS: BACITRACIN 0.9 GM PACKET 1 PACKET TOPICAL (19:54)
[2024-03-31] MEDS: SODIUM CHLORIDE 0.9% IRRIG SOLUTION 1,000 ML BOTTLE 1000 ML IRR (19:54)
== END 2024-03-31 20:01 | disposition home or self-care (01) ==
PROVIDERS: Emergency Provider Internal Medicine; PCP Family Medicine
DX: S61.412A Laceration without foreign body of left hand, initial encounter (principal); Z23 Encounter for immunization; W26.9XXA Contact with unspecified sharp object(s), initial encounter
CPT/HCPCS: 12001; 90471; 90715; 99283